=== PATIENT | male | born 1960 | race Caucasian/White ===

== ENCOUNTER 2016-11-21 11:11 | Inpatient (IN) | payer OTHER ==
[~2016-11-21] VITALS: Ht 177.8 cm; Wt 83.0 kg
--- NOTE | 2016-11-21 11:23 | PHYS DOC ---
Adult General Chief Complaint Chief Complaint: SHORTNESS OF BREATH HPI HPI Patient is a 56 year old male who presents with short of breath is been getting worse over the last week. He was started on Augmentin and 800 mg Motrin approximately 10 days ago for dental issues. He states his shortness of breath has been getting worse and over the last couple nights he can't lay flat. He also states his abdomen is becoming more distended. He does smoke a pack of cigarettes per days and the last 40 years and drinks one to 2 glasses of vodka daily. Otherwise he states he has no past medical problems. He denies any chest pain, abdominal pain, leg pain, recent car trips or immobility. Review of Systems Review of Systems Constitutional: Denies fever or chills [] Eyes: Denies change in visual acuity, redness, or eye pain [] HENT: Denies nasal congestion or sore throat [] Respiratory: Denies cough, positive for shortness of breath [] Cardiovascular: No additional information not addressed in HPI [] GI: Denies abdominal pain, nausea, vomiting, bloody stools or diarrhea [] : Denies dysuria or hematuria [] Musculoskeletal: Denies back pain or joint pain [] Integument: Denies rash or skin lesions [] Neurologic: Denies headache, focal weakness or sensory changes [] Endocrine: Denies polyuria or polydipsia [] Current Medications Current Medications Current Medications Medications (Trade) Dose Ordered Sig/Tutu Start Time Stop Time Status Last Admin Dose Admin Aspirin (Nat Aspirin) 325 mg 1X ONCE 11/21/16 14:30 11/21/16 14:31 UNV Furosemide (Lasix) 40 mg 1X ONCE 11/21/16 14:30 11/21/16 14:31 Info (Do NOT chart on this entry -- for MONITORING) 1 each PRN DAILY PRN 11/21/16 13:45 11/23/16 13:44 Iohexol (Omnipaque 300 Mg/ml) 75 ml 1X ONCE 11/21/16 13:30 11/21/16 13:31 DC 11/21/16 13:43 75 ML Morphine Sulfate 2 mg PRN Q2HR PRN 11/21/16 14:30 11/22/16 14:29 UNV Ondansetron HCl (Zofran) 4 mg PRN Q8HRS PRN 11/21/16 14:30 11/22/16 14:29 UNV Allergies Allergies Allergies Coded Allergies Type Severity Reaction Last Updated Verified No Known Drug Allergies 11/21/16 No Physical Exam Physical Exam Constitutional: Well developed, well nourished, no acute distress, non-toxic appearance. [] HENT: Normocephalic, atraumatic, bilateral external ears normal, oropharynx moist, no oral exudates, nose normal. [] Eyes: PERRLA, EOMI, conjunctiva normal, no discharge. [] Neck: Normal range of motion, no tenderness, supple, no stridor. [] Cardiovascular:Heart rate regular rhythm, no murmur [] Lungs & Thorax: Bilateral breath sounds decreased bilaterally, no wheezing or rhonchi noted Abdomen: Bowel sounds normal, soft, mildly distended, no tenderness, no masses, no pulsatile masses. [] Skin: Warm, dry, no erythema, no rash. [] Back: No tenderness, no CVA tenderness. [] Extremities: No tenderness, no cyanosis, no clubbing, ROM intact, no edema. [] Neurologic: Alert and oriented X 3, normal motor function, normal sensory function, no focal deficits noted. [] Psychologic: Affect normal, judgement normal, mood normal. [] Current Patient Data Lab Values Laboratory Tests Test 11/21/16 11:50 White Blood Count 10.5 x10^3/uL (4.0-11.0) Red Blood Count 4.73 x10^6/uL (4.30-5.70) Hemoglobin 14.7 g/dL (13.0-17.5) Hematocrit 43.0 % (39.0-53.0) Mean Corpuscular Volume 91 fL (79-100) Mean Corpuscular Hemoglobin 31 pg (25-35) Mean Corpuscular Hemoglobin Concent 34 g/dL (31-37) Red Cell Distribution Width 13.4 % (11.5-14.5) Platelet Count 257 x10^3/uL (140-400) Neutrophils (%) (Auto) 74 % (31-73) H Lymphocytes (%) (Auto) 16 % (24-48) L Monocytes (%) (Auto) 8 % (0-9) Eosinophils (%) (Auto) 2 % (0-3) Basophils (%) (Auto) 1 % (0-3) Neutrophils # (Auto) 7.8 x10^3uL (1.8-7.7) H Lymphocytes # (Auto) 1.7 x10^3/uL (1.0-4.8) Monocytes # (Auto) 0.8 x10^3/uL (0.0-1.1) Eosinophils # (Auto) 0.2 x10^3/uL (0.0-0.7) Basophils # (Auto) 0.1 x10^3/uL (0.0-0.2) Prothrombin Time 13.1 SEC (11.7-14.0) Prothrombin Time INR 1.1 (0.8-1.1) D-Dimer (Allyn) 0.66 ug/mlFEU (0.00-0.50) H Sodium Level 141 mmol/L (136-145) Potassium Level 3.8 mmol/L (3.5-5.1) Chloride Level 105 mmol/L (98-107) Carbon Dioxide Level 29 mmol/L (21-32) Anion Gap 7 (6-14) Blood Urea Nitrogen 21 mg/dL (8-26) Creatinine 0.8 mg/dL (0.7-1.3) Estimated GFR (Cockcroft-Gault) 99.6 Glucose Level 119 mg/dL (70-99) H Calcium Level 9.2 mg/dL (8.5-10.1) Magnesium Level 2.0 mg/dL (1.8-2.4) Total Bilirubin 0.7 mg/dL (0.2-1.0) Direct Bilirubin 0.1 mg/dL (0.0-0.2) Aspartate Amino Transferase (AST) 27 U/L (15-37) Alanine Aminotransferase (ALT) 36 U/L (16-63) Alkaline Phosphatase 103 U/L (46-116) Creatine Kinase 102 U/L (39-308) Creatine Kinase MB (Mass) 2.7 ng/mL (0.0-3.6) Creatine Kinase MB Relative Index 2.6 % (0-4) Troponin I Quantitative 0.060 ng/mL (0.000-0.055) JJ-Mtf-[id number]-Type Natriuretic Peptide 1024 pg/mL (0-124) H Total Protein 7.1 g/dL (6.4-8.2) Albumin 3.8 g/dL (3.4-5.0) Lipase 110 U/L (73-393) Thyroid Stimulating Hormone (TSH) 3.416 uIU/mL (0.358-3.74) Laboratory Tests 11/21/16 11:50 Laboratory Tests 11/21/16 11:50 EKG EKG EKG shows sinus tachycardia 3-[address] elevations or T-wave inversions, normal axis, QTC 501 ms, as interpreted by me. Radiology/Procedures Radiology/[place] [address] IMAGING REPORT Signed PATIENT: YE ESCALERA ACCOUNT: [id number] : 1960 LOCATION: ER AGE: 56 SEX: M EXAM STATUS: REG ER ORD. PHYSICIAN: ANTHONY DOMINGUEZ MD REASON: SHORTNESS OF BREATH 18 PROCEDURE: PORTABLE CHEST 1V Indication: Shortness of air. Time of exam 11:51 AM The heart is mildly enlarged. The lungs are clear. No infiltrates are detected. No effusion or pneumothorax is seen. Impression: Mild cardiomegaly. No acute feature is detected. DICTATED and SIGNED BY: SERGEI BROWN MD DATE: 11/21/16 121 CC: ANTHONY DOMINGUEZ MD; NO PCP ~ [place] [address] IMAGING REPORT Signed PATIENT: YE ESCALERA ACCOUNT: [id number] : 1960 LOCATION: ER AGE: 56 SEX: M EXAM STATUS: REG ER ORD. PHYSICIAN: ANTHONY DOMINGUEZ MD REASON: soa PROCEDURE: CT ANGIOGRAPHY CHEST CTA of the chest with and without contrast Clinical indications: Shortness of air. Technique: Noncontrast axial localizer was performed. After IV infusion of 75 cc of Omnipaque 300, helical CT scanning of the chest was performed using the CT pulmonary embolism protocol. A coronal MIP reconstruction was generated. PQRS Compliance Statement: One or more of the following individualized dose reduction techniques were utilized for this examination: 1. Automated exposure control 2. Adjustment of the mA and/or kV according to patient size 3. Use of iterative reconstruction technique Comparison: None available. Findings: No pulmonary embolism is evident. No thoracic aortic dissection or focal dilatation is seen. The heart size is at the upper limits of normal. No pericardial effusion is seen. There is mild calcified atheromatous disease of the coronary arteries. No enlarged thoracic lymphadenopathy is seen. Small bilateral pleural effusions are seen right greater than left. Associated compressive atelectasis of both lower lobes is seen. No pneumothorax is evident. The proximal bronchial tree is patent. Breathing motion artifact is present. Evaluation for rib fracture is difficult therefore. No osteolytic process is seen. No compression deformity is evident. IMPRESSION: No pulmonary embolism. Small bilateral pleural effusions right greater than left. Associated basilar atelectasis of both lower lobes. Heart size is at the upper limits of normal. Mild calcified atheromatous disease of the coronary arteries. DICTATED and SIGNED BY: DELIA FRANKS MD DATE: 11/21/16 1401 CC: ANTHONY DOMINGUEZ MD; NO PCP ~ Impressions: Congestive heart failure exacerbation Alcohol abuse Course & Med Decision Making Course & Med Decision Making Pertinent Labs and Imaging studies reviewed. (See chart for details) G shows sinus tachycardia. He does have slightly elevated troponin. D-dimer is elevated with a negative CT scan. BNP is elevated. Spoke with cardiology who wanted to start Lasix. Patient is being admitted to hospitalist with interim orders written. Dragon Disclaimer Dragon Disclaimer This electronic medical record was generated, in whole or in part, using a voice recognition dictation system. ANTHONY DOMINGUEZ MD Nov 21, 2016 11:23
[2016-11-21 12:00] LABS: BASO # 0.1 x10^3/uL (0.0-0.2); BASO % 1 % (0-3); EOS % 2 % (0-3); HEMOGLOBIN 14.7 g/dL (13.0-17.5); LYMPH # 1.7 x10^3/uL (1.0-4.8); LYMPH % 16 % (24-48); MEAN CORPUSCULAR HEMOGLOBIN 31 pg (25-35); MEAN CORPUSCULAR HGB CONC 34 g/dL (31-37); MEAN CORPUSCULAR VOLUME 91 fL (79-100); MONO % 8 % (0-9); NEUT % 74 % (31-73); PLATELET COUNT 257 x10^3/uL (140-400); RED BLOOD COUNT 4.73 x10^6/uL (4.30-5.70); RED CELL DISTRIBUTION WIDTH 13.4 % (11.5-14.5); WHITE BLOOD COUNT 10.5 x10^3/uL (4.0-11.0)
[2016-11-21 12:12] LABS: INR 1.1 (0.8-1.1); PROTHROMBIN TIME PATIENT 13.1 SEC (11.7-14.0)
[2016-11-21 12:14] LABS: CALCIUM 9.2 mg/dL (8.5-10.1); CREATININE 0.8 mg/dL (0.7-1.3); GFR 99.6; POTASSIUM 3.8 mmol/L (3.5-5.1)
--- NOTE | 2016-11-21 12:15 | EKG ---
[facility] [address] [place] [address] Test Date: 2016-11-21 Test Time: 11:35:37 Pat Name: YE ESCALERA Department: Room: Gender: M Fryline Attendant: : 1960 Requested By: ANTHONY DOMINGUEZ Order Number: [id number] Reading MD: Mary Nova Measurements Intervals [place] Rate: 111 P: 34 OR: 130 QRS: 46 QRSD: 98 T: 57 QT: 366 QTc: 501 Interpretive Statements SINUS TACHYCARDIA LEFT ATRIAL ABNORMALITY ABNORMAL ECG Electronically Signed On 11-23-2016 14:06:07 CDT by Mary Nova
--- NOTE | 2016-11-21 12:15 | RAD ---
Indication: Shortness of air. Time of exam 11:51 AM The heart is mildly enlarged. The lungs are clear. No infiltrates are detected. No effusion or pneumothorax is seen. Impression: Mild cardiomegaly. No acute feature is detected.
[2016-11-21 12:38] LABS: ALBUMIN 3.8 g/dL (3.4-5.0); DIRECT BILIRUBIN 0.1 mg/dL (0.0-0.2); TOTAL BILIRUBIN 0.7 mg/dL (0.2-1.0); TOTAL PROTEIN 7.1 g/dL (6.4-8.2)
[2016-11-21 13:01] LABS: CKMB MASS 2.7 ng/mL (0.0-3.6)
[2016-11-21] MEDS ORDERED: IOHEXOL 300 MG/ML 75 ML VIAL IV ONE (13:30)
[2016-11-21] MEDS ORDERED: CONTRAST GIVEN MC PRN (13:45)
--- NOTE | 2016-11-21 14:14 | RAD ---
CTA of the chest with and without contrast Clinical indications: Shortness of air. Technique: Noncontrast axial localizer was performed. After IV infusion of 75 cc of Omnipaque 300, helical CT scanning of the chest was performed using the CT pulmonary embolism protocol. A coronal MIP reconstruction was generated. PQRS Compliance Statement: One or more of the following individualized dose reduction techniques were utilized for this examination: 1. Automated exposure control 2. Adjustment of the mA and/or kV according to patient size 3. Use of iterative reconstruction technique Comparison: None available. Findings: No pulmonary embolism is evident. No thoracic aortic dissection or focal dilatation is seen. The heart size is at the upper limits of normal. No pericardial effusion is seen. There is mild calcified atheromatous disease of the coronary arteries. No enlarged thoracic lymphadenopathy is seen. Small bilateral pleural effusions are seen right greater than left. Associated compressive atelectasis of both lower lobes is seen. No pneumothorax is evident. The proximal bronchial tree is patent. Breathing motion artifact is present. Evaluation for rib fracture is difficult therefore. No osteolytic process is seen. No compression deformity is evident. IMPRESSION: No pulmonary embolism. Small bilateral pleural effusions right greater than left. Associated basilar atelectasis of both lower lobes. Heart size is at the upper limits of normal. Mild calcified atheromatous disease of the coronary arteries.
--- NOTE | 2016-11-21 14:17 | PDOC2 ---
CARDIAC CONSULT DATE OF CONSULT Date of Consult DATE: 11/21/16 TIME: 14:16 REASON FOR CONSULT Reason for Consult: CHF exacerbation REFERRING PHYSICIAN Referring Physician: Devendra SOURCE Source: Chart review, Patient HISTORY OF PRESENT ILLNESS HISTORY OF PRESENT ILLNESS This is a pleasant 56 yo male admitted for complains of SOA. Reports that in the last week he has been having SOA. Initially with GERMAN but it progressed to rest then orthopnea and PND. He has been having wheezy episodes as well. Complains of chest tightness at night when he feels SOA but denies any nausea or vomiting. Also with nonproductive cough. Reports no radiating jaw or arm pain, no back pain. Denies any palpitations. He has periodontal disease with some of his top teeth needing to be taken out but currently being treated with po amoxicillin and high dose ibuprofen before his tooth extraction scheduled for 12/2016. He also continue to smoke tobacco and known for COPD but only takes albuterol inhaler which he has been using quite frequently in the last few days. He also chewed on some meth rolled in a toilet paper about 4 days ago. Reports 1/2 pint of bourbon/vodka mix daily. In addition to his current symptoms he also has been feeling some tightness around his abdomen. No significant swelling to LE. No prior hx of CAD, VTE, falls or any injury. PAST MEDICAL HISTORY Cardiovascular: HTN, Hyperlipidemia Pulmonary: COPD CENTRAL NERVOUS SYSTEM: Seizure (last episode grand mal 4 yrs ago, treated with meds at that time occurred in prision but no maintenance currently) GI: No pertinent hx Heme/Onc: No pertinent hx Hepatobiliary: Hep A/B/C (C) Psych: No pertinent hx Musculoskeletal: Osteoarthritis Rheumatologic: No pertinent hx Infectious disease: No pertinent hx ENT: Other (periodontal disease/gingivitis) Renal/: No pertinent hx Endocrine: No pertinent hx Dermatology: No pertinent hx PAST SURGICAL HISTORY Past Surgical History: Arthroscopy (left knee), Tonsillectomy, Other (skin graft from botello to RLE) FAMILY HISTORY Family History: Other (thyroid disease) SOCIAL HISTORY Smoke: <1 pack per day (>40 yrs) ALCOHOL: heavy Drugs: Marijuana, Crystal meth Lives: with Family CURRENT MEDICATIONS CURRENT MEDICATIONS Current Medications Medications (Trade) Dose Ordered Sig/Tutu Route PRN Reason Start Time Stop Time Status Last Admin Dose Admin Iohexol (Omnipaque 300 Mg/ml) 75 ml 1X ONCE IV 11/21/16 13:30 11/21/16 13:31 DC 11/21/16 13:43 ALLERGIES ALLERGIES: Coded Allergies: No Known Drug Allergies (Unverified , 11/21/16) ROS Review of System 14 point ROS evaluated with pertinent positives noted per HPI PHYSICAL EXAM General: Alert, Oriented X3, Cooperative, No acute distress HEENT: Atraumatic, Mucous membr. moist/pink Lungs: Other (basialr crackles) Heart: Regular rate (SR/ST), Normal S1, Normal S2, Other (S3; 2/6 systolic murmur to LLS border) Abdomen: Soft, No tenderness, Other (RUQ tenderness; hepatomegaly; possible ascites) Extremities: No cyanosis, No edema Skin: No breakdown, No significant lesion Neuro: Normal speech, Sensation intact Psych/Mental Status: Mental status NL, Mood NL MUSCULOSKELETAL: Osteoarthritic changes both hands LABS Lab: Laboratory Tests Test 11/21/16 11:50 White Blood Count 10.5 x10^3/uL (4.0-11.0) Red Blood Count 4.73 x10^6/uL (4.30-5.70) Hemoglobin 14.7 g/dL (13.0-17.5) Hematocrit 43.0 % (39.0-53.0) Mean Corpuscular Volume 91 fL (79-100) Mean Corpuscular Hemoglobin 31 pg (25-35) Mean Corpuscular Hemoglobin Concent 34 g/dL (31-37) Red Cell Distribution Width 13.4 % (11.5-14.5) Platelet Count 257 x10^3/uL (140-400) Neutrophils (%) (Auto) 74 % (31-73) Lymphocytes (%) (Auto) 16 % (24-48) Monocytes (%) (Auto) 8 % (0-9) Eosinophils (%) (Auto) 2 % (0-3) Basophils (%) (Auto) 1 % (0-3) Neutrophils # (Auto) 7.8 x10^3uL (1.8-7.7) Lymphocytes # (Auto) 1.7 x10^3/uL (1.0-4.8) Monocytes # (Auto) 0.8 x10^3/uL (0.0-1.1) Eosinophils # (Auto) 0.2 x10^3/uL (0.0-0.7) Basophils # (Auto) 0.1 x10^3/uL (0.0-0.2) Prothrombin Time 13.1 SEC (11.7-14.0) Prothromb Time International Ratio 1.1 (0.8-1.1) D-Dimer (Allyn) 0.66 ug/mlFEU (0.00-0.50) Sodium Level 141 mmol/L (136-145) Potassium Level 3.8 mmol/L (3.5-5.1) Chloride Level 105 mmol/L (98-107) Carbon Dioxide Level 29 mmol/L (21-32) Anion Gap 7 (6-14) Blood Urea Nitrogen 21 mg/dL (8-26) Creatinine 0.8 mg/dL (0.7-1.3) Estimated GFR (Cockcroft-Gault) 99.6 Glucose Level 119 mg/dL (70-99) Calcium Level 9.2 mg/dL (8.5-10.1) Magnesium Level 2.0 mg/dL (1.8-2.4) Total Bilirubin 0.7 mg/dL (0.2-1.0) Direct Bilirubin 0.1 mg/dL (0.0-0.2) Aspartate Amino Transf (AST/SGOT) 27 U/L (15-37) Alanine Aminotransferase (ALT/SGPT) 36 U/L (16-63) Alkaline Phosphatase 103 U/L (46-116) Creatine Kinase 102 U/L (39-308) Creatine Kinase MB (Mass) 2.7 ng/mL (0.0-3.6) Creatine Kinase MB Relative Index 2.6 % (0-4) Troponin I Quantitative 0.060 ng/mL (0.000-0.055) ZX-[id number]-Q-Type Natriuretic Peptide 1024 pg/mL (0-124) Total Protein 7.1 g/dL (6.4-8.2) Albumin 3.8 g/dL (3.4-5.0) Lipase 110 U/L (73-393) Thyroid Stimulating Hormone (TSH) 3.416 uIU/mL (0.358-3.74) ASSESSMENT/PLAN ASSESSMENT/PLAN 1. Acute diastolic CHF: likely induced by meth use and COPD exacerbation. 2. Acute COPD exacerbation with continue tobaccoism: defer to PCP 3. Alcoholism with hx of hep C: per PCP 4. Hx of seizures: last episode 4 yrs ago 5. Periodontal disease: still on amoxicillin 6. Substance abuse: hx of IV drug use. Chewed meth 4 days ago. 7. HTN: unmedicated. currently labile 8. High dose NSAID use: last 10 days due to teeth 9. Elevated troponin: CP free. Doubt ACS. Suspect from #1,2, and #6. Initial 0.06. EKG SR with LVH but no acute changes Recommendations 1. Discussed med compliance, smoking cessation, ETOH reduction and abstinence from Rec drugs. 2. TTE. TSH, lipid panel. Trend troponin, tox screen 3. Lasix therapy. Decrease NSAID use 4. Will defer coreg for now with meth use. Will start on NTG paste and lisinopril. Hydralazine IV PRN Problems: JOSE ALFREDO WESLEY DINKEY ENGINE [employer]ER Nov 21, 2016 14:17
[2016-11-21] MEDS ORDERED: FUROSEMIDE 40 MG/4 ML VIAL. IVP ONE (14:30)
[2016-11-21] MEDS ORDERED: ASPIRIN 325 MG TABLET PO ONE (14:45)
[2016-11-21] MEDS ORDERED: ONDANSETRON PF 4 MG/2 ML VIAL. IV PRN (14:45)
[2016-11-21 14:59] LABS: CHOLESTEROL/HDL RATIO 5.5
[2016-11-21] MEDS ORDERED: hydrALAZINE 20 MG/ML VIAL. IVP ONE (15:30)
--- NOTE | 2016-11-21 15:44 | ACF ---
Admission Forms Criteria HEART FAILURE: COMMON COMPLICATIONS Clinical Indications for Inpatient Care (Place 'X' for any and all applicable criteria): Ongoing inpatient care may be indicated for heart failure with 1 or more of the following (1)(2)(3)(4)(5)(6)(7)(8): [ ]I. New-onset heart failure [ ]II. Acute cardiac ischemia causing or associated with failure [ ]III. Ongoing need for care for primary condition requiring frequent therapy adjustments because of changes in cardiac function (eg, drug dosage changes for drugs that are renally metabolized) [X ]IV. Complications of heart failure, including 1 or more of the following: [ ]a) Hemodynamic instability [ ]b) Pericardial effusion [ ]c) Symptomatic pleural effusion [ ]d) Hypoxemia [ ]e) Tachypnea [X ]f) Dyspnea [ ]g) Syncope [ ]h) Altered mental status [ ]i) Acute renal insufficiency that is severe (reduction of more than 50% in estimated glomerular filtration rate from baseline) or progressive reduction of more than 25% in estimated glomerular filtration rate from baseline, with creatinine continuing to rise) [ ]j) Debilitating anasarca (eg tissue breakdown with infection, inability to void due to edema) (E) [ ]k) Clinically significant metabolic abnormalities due to heart failure (eg, new-onset metabolic acidosis) Extended stay may be needed until ALL of the following are present (1)(3)(18)(41 )(55) [ ]a) Hemodynamic stability [ ]b) Stable and effective diuretic regimen established (or patient on stable dialysis regimen if in chronic renal failure) [ ]c) Volume status acceptable on oral medication [ ]d) Breathing comfortably at rest [ ]e) Saturation of arterial oxygen greater than 90% or at acceptable baseline [ ]f) Pulmonary edema absent or improved [ ]g) Peripheral or sacral edema absent or improved [ ]h) Renal function stable and manageable at a lower level of care [ ]i) Complications (eg, pleural effusion) resolved or manageable at a lower level of care [ ]g) Patient or caregiver has received written discharge instructions or educational material addressing activity level, diet, discharge medications, follow-up appointment, weight monitoring, and what to do if symptoms worsen.(25)(26) The original [facility] [employer] content created by [facility] [employer] has been revised. The portions of the content which have been revised are identified through the use of italic text, and [facility] has neither reviewed nor approved the modified material.All other unmodified content is copyright [facility]. Please see references footnoted in the original [facility] edition 2015 Admission Criteria Met?: Yes ANNE JOHNSTON Nov 21, 2016 15:44
[2016-11-21 17:11] VITALS: BP 150/101
[2016-11-21] MEDS: NITROGLYCERIN OINT 1 GM PACKET. TP SCH (18:40)
[2016-11-21 19:13] VITALS: BP 136/78
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
[2016-11-21] MEDS: ATORVASTATIN CALCIUM 20 MG TABLET PO SCH (21:00)
[2016-11-21] MEDS: ENOXAPARIN 40 MG/0.4 ML SYRINGE. SQ SCH (21:00)
[2016-11-21] MEDS ORDERED: AMOXICILLIN 250 MG CAPSULE. PO SCH (22:15)
[2016-11-21] MEDS ORDERED: ZOLPIDEM 5 MG TABLET. PO PRN (22:15)
[2016-11-21] MEDS ORDERED: THIAMINE 100 MG in IV NORMAL SALINE 50ML 50 ML IV ONE (22:30)
[2016-11-21 23:19] VITALS: BP 138/90
[2016-11-22] MEDS: MORPHINE SULFATE 2 MG/ML DISP.SYRIN. IV PRN ×2 (01:23→10:58)
[2016-11-22 03:19] LABS: BASO % 0 % (0-3); EOS % 3 % (0-3); HEMATOCRIT 44.3 % (39.0-53.0); HEMOGLOBIN 14.9 g/dL (13.0-17.5); LYMPH # 1.8 x10^3/uL (1.0-4.8); LYMPH % 20 % (24-48); MEAN CORPUSCULAR HEMOGLOBIN 31 pg (25-35); MEAN CORPUSCULAR HGB CONC 34 g/dL (31-37); MEAN CORPUSCULAR VOLUME 93 fL (79-100); MONO % 10 % (0-9); NEUT % 68 % (31-73); PLATELET COUNT 240 x10^3/uL (140-400); RED BLOOD COUNT 4.78 x10^6/uL (4.30-5.70); RED CELL DISTRIBUTION WIDTH 13.6 % (11.5-14.5)
[2016-11-22 03:26] LABS: CALCIUM 8.9 mg/dL (8.5-10.1); CREATININE 0.8 mg/dL (0.7-1.3); GFR 99.6; POTASSIUM 3.6 mmol/L (3.5-5.1)
[2016-11-22 03:33] VITALS: BP 137/94
[2016-11-22] MEDS: NITROGLYCERIN OINT 1 GM PACKET. TP SCH ×2 (06:00)
[2016-11-22 07:00] VITALS: BP 121/85
--- NOTE | 2016-11-22 08:46 | RAD ---
Complete abdomen ultrasound study History: Ascites. Shortness of air. Findings: The tail of the pancreas is partially obscured due to overlying bowel gas. Otherwise no focal enlargement of the pancreas is seen. The liver measures 18.9 cm in length which is mildly enlarged. No focal hepatic mass is seen. The gallbladder is normal and no gallstones are seen. The extra hepatic bile duct measures 3.2 mm in caliber which is normal. The intrahepatic portion of the IVC is unremarkable. No focal aneurysmal dilatation of the proximal or mid abdominal aorta is seen. The distal abdominal aorta is obscured by bowel gas. The length of the right kidney is 11.2 cm and the length of the left kidney is 10.7 cm. No hydronephrosis or renal mass or perinephric fluid collection is seen on either side. There is a cyst of the upper pole of the right kidney which measures 8 mm. No ascites is seen. The spleen measures 13.4 cm in length which is mildly enlarged. The spleen is homogeneous. IMPRESSION: Mild hepatosplenomegaly. No ascites is evident. Small right-sided pleural effusion is seen.
[2016-11-22] MEDS: AMOXICILLIN 500 MG PO SCH ×3 (09:00→21:11)
[2016-11-22] MEDS ORDERED: FUROSEMIDE 40 MG/4 ML VIAL. IVP SCH (09:00)
[2016-11-22] MEDS: LISINOPRIL 20 MG TABLET PO SCH (09:02)
[2016-11-22] MEDS: THIAMINE 100 MG TABLET. PO SCH (09:02)
[2016-11-22] MEDS: FOLIC/VIT B COMP W-C (RENAL) TABLET. PO SCH (09:02)
--- NOTE | 2016-11-22 09:58 | PDOC ---
CARDIO Progress Notes Date and Time Date of Service 11/22/2016 Time of Evaluation 0930 Subjective Subjective: No Chest Pain, No shortness of breath, No Palpitations, No Dizziness, Other (Still has some tightness around belly) Vitals Vitals Vital Signs Date Time Temp Pulse Resp B/P (MAP) Pulse Ox O2 Delivery O2 Flow Rate FiO2 11/22/16 09:02 96 121/85 11/22/16 07:00 97.8 17 96 Room Air 97.8 Weight Weight [ ] Input and Output Intake and Output Intake and Output 11/22/16 07:00 Intake Total 1390 ml Output Total 1475 ml Balance -85 ml Intake Oral 1390 ml Output Urine Total 1475 ml Laboratory Labs Laboratory Tests Test 11/21/16 11:50 11/21/16 20:34 11/22/16 03:05 White Blood Count 10.5 x10^3/uL (4.0-11.0) 9.0 x10^3/uL (4.0-11.0) Red Blood Count 4.73 x10^6/uL (4.30-5.70) 4.78 x10^6/uL (4.30-5.70) Hemoglobin 14.7 g/dL (13.0-17.5) 14.9 g/dL (13.0-17.5) Hematocrit 43.0 % (39.0-53.0) 44.3 % (39.0-53.0) Mean Corpuscular Volume 91 fL (79-100) 93 fL (79-100) Mean Corpuscular Hemoglobin 31 pg (25-35) 31 pg (25-35) Mean Corpuscular Hemoglobin Concent 34 g/dL (31-37) 34 g/dL (31-37) Red Cell Distribution Width 13.4 % (11.5-14.5) 13.6 % (11.5-14.5) Platelet Count 257 x10^3/uL (140-400) 240 x10^3/uL (140-400) Neutrophils (%) (Auto) 74 % (31-73) 68 % (31-73) Lymphocytes (%) (Auto) 16 % (24-48) 20 % (24-48) Monocytes (%) (Auto) 8 % (0-9) 10 % (0-9) Eosinophils (%) (Auto) 2 % (0-3) 3 % (0-3) Basophils (%) (Auto) 1 % (0-3) 0 % (0-3) Neutrophils # (Auto) 7.8 x10^3uL (1.8-7.7) 6.1 x10^3uL (1.8-7.7) Lymphocytes # (Auto) 1.7 x10^3/uL (1.0-4.8) 1.8 x10^3/uL (1.0-4.8) Monocytes # (Auto) 0.8 x10^3/uL (0.0-1.1) 0.9 x10^3/uL (0.0-1.1) Eosinophils # (Auto) 0.2 x10^3/uL (0.0-0.7) 0.2 x10^3/uL (0.0-0.7) Basophils # (Auto) 0.1 x10^3/uL (0.0-0.2) 0.0 x10^3/uL (0.0-0.2) Prothrombin Time 13.1 SEC (11.7-14.0) Prothromb Time International Ratio 1.1 (0.8-1.1) D-Dimer (Allyn) 0.66 ug/mlFEU (0.00-0.50) Sodium Level 141 mmol/L (136-145) 139 mmol/L (136-145) Potassium Level 3.8 mmol/L (3.5-5.1) 3.6 mmol/L (3.5-5.1) Chloride Level 105 mmol/L (98-107) 101 mmol/L (98-107) Carbon Dioxide Level 29 mmol/L (21-32) 28 mmol/L (21-32) Anion Gap 7 (6-14) 10 (6-14) Blood Urea Nitrogen 21 mg/dL (8-26) 20 mg/dL (8-26) Creatinine 0.8 mg/dL (0.7-1.3) 0.8 mg/dL (0.7-1.3) Estimated GFR (Cockcroft-Gault) 99.6 99.6 Glucose Level 119 mg/dL (70-99) 117 mg/dL (70-99) Calcium Level 9.2 mg/dL (8.5-10.1) 8.9 mg/dL (8.5-10.1) Magnesium Level 2.0 mg/dL (1.8-2.4) Total Bilirubin 0.7 mg/dL (0.2-1.0) Direct Bilirubin 0.1 mg/dL (0.0-0.2) Aspartate Amino Transf (AST/SGOT) 27 U/L (15-37) Alanine Aminotransferase (ALT/SGPT) 36 U/L (16-63) Alkaline Phosphatase 103 U/L (46-116) Creatine Kinase 102 U/L (39-308) Creatine Kinase MB (Mass) 2.7 ng/mL (0.0-3.6) Creatine Kinase MB Relative Index 2.6 % (0-4) Troponin I Quantitative 0.060 ng/mL (0.000-0.055) 0.052 ng/mL (0.000-0.055) 0.046 ng/mL (0.000-0.055) XT-Zve-V-Type Natriuretic Peptide 1024 pg/mL (0-124) Total Protein 7.1 g/dL (6.4-8.2) Albumin 3.8 g/dL (3.4-5.0) Triglycerides Level 247 mg/dL (0-150) Cholesterol Level 218 mg/dL (0-200) LDL Cholesterol, Calculated 129 mg/dL (0-100) VLDL Cholesterol, Calculated 49 mg/dL (0-40) Non-HDL Cholesterol Calculated 178 mg/dL (0-129) HDL Cholesterol 40 mg/dL (40-60) Cholesterol/HDL Ratio 5.5 Lipase 110 U/L (73-393) Thyroid Stimulating Hormone (TSH) 3.416 uIU/mL (0.358-3.74) Physical Exam HEENT: Neck Supple W Full Motion Chest: Symmetric LUNGS: Other (faint crackles to bases) Heart: S1S2, RRR (SR and no significant ectopies overnight), murmurs (2/6 systolic murmur to LLS border) Abdomen: Other (RUQ tenderness, hepatomegaly, possible ascites) Extremities: No Edema, No Calf Tenderness Neurology: alert, oriented, follow commands Assessment Assessment 1. Acute diastolic/systolic CHF: likely induced by meth use and COPD exacerbation. appears compensated 2. RUQ tenderness with hepatomegaly, possible ascites: Contributing CHF with notable alcoholism with hx of hep C: per PCP 3. HTN: controlled 4. Cardiomyopathy: NEW. No CP. preliminary EF 25-30% with severe global hypokinesis. 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 HLP 6. Periodontal disease/substance abuse: methamphetamines Recommendations 1. Repeated discussion regarding med compliance, smoking cessation, ETOH reduction and abstinence from Rec drugs. 2. Tox screen pending 3. Lasix therapy. Chagne to PO tomorrow. Decrease NSAID use 4. Discussed stopping meth/ETOH use, to start on BB. Will start on coreg. Stop NTG 5. Continue with lisinopril and statin 6. MPI today JOSE ALFREDO WESLEY APRN Nov 22, 2016 09:58
[2016-11-22 10:25] LABS: BILIRUBIN,URINE NEGATIVE (NEG); GLUCOSE,URINE NEGATIVE (NEG); NITRITE,URINE NEGATIVE (NEG); PH,URINE 6.5; PROTEIN,URINE NEGATIVE (NEG-TRACE)
[2016-11-22 10:31] LABS: BARBITURATES NEG (NEG); BENZODIAZEPINES NEG (NEG); CANNABINOIDS NEG (NEG); COCAINE NEG (NEG); METHADONE NEG (NEG); OPIATES POS (NEG); PHENCYCLIDINE NEG (NEG)
[2016-11-22] MEDS ORDERED: REGADENOSON 0.4 MG/5 ML DISP.SYRIN. IV ONE (10:45)
[2016-11-22 10:51] LABS: BACTERIA,URINE FEW /HPF (0-FEW)
[2016-11-22 11:00] VITALS: BP 133/89
--- NOTE | 2016-11-22 13:08 | CARD ---
APPROVED REPORT EXAM: Two-dimensional and M-mode echocardiogram with Doppler and color Doppler. Other Information Quality : GoodHR: 112bpm Rhythm : Tachycardia INDICATION Dyspnea 2D DIMENSIONS RVDd2.6 (2.9-3.5cm)Left Atrium(2D)4.1 (1.6-4.0cm) IVSd0.7 (0.7-1.1cm)Aortic Root(2D)3.4 (2.0-3.7cm) LVDd6.1 (3.9-5.9cm)LVOT Diameter2.3 (1.8-2.4cm) PWd0.8 (0.7-1.1cm)LVDs5.0 (2.5-4.0cm) FS (%) 18.1 %SV70.2 ml LVEF(%)36.8 (>50%) Aortic Valve AoV Peak Can.97.4cm/sAoV VTI16.2cm AO Peak GR.3.8mmHgLVOT Peak Can.64.8cm/s AO Mean GR.3mmHgAVA (VMAX)2.70cm2 Mitral Valve MV E Kxpqigpw06.3cm/sMV E Peak Gr.7mmHg MV DECEL [id number] A Bjwqxpoj093.8cm/s MV E Mean Gr.4mmHgE/A Ratio0.7 MV A [id number] Pulmonary Valve PV Peak Wucbsyxp18.6cm/s Tricuspid Valve TR P. [id number]/sTR Peak Gr.28mmHg LEFT VENTRICLE The Left Ventricle is mildly dilated. There is normal left ventricular wall thickness. Left ventricle systolic function is severely impaired. The Ejection Fraction is 25-30%. There is severe global hypo kinesis of the left ventricle. Transmitral Doppler flow pattern is Grade I-abnormal relaxation patter n. No left ventricle thrombus noted on this study. RIGHT VENTRICLE The right ventricle is normal size. There is normal right ventricular wall thickness. Systolic functi on is moderately reduced. ATRIA The left atrium is mildly dilated. The right atrium is mildly dilated. The interatrial septum is inta ct with no evidence for an atrial septal defect or patent foramen ovale as noted on 2-D or Doppler im aging. AORTIC VALVE The aortic valve is normal in structure and function. The aortic valve is trileaflet. Doppler and Col or Flow revealed no significant aortic regurgitation. There is no significant aortic valvular stenosi s. MITRAL VALVE There is no evidence of mitral valve prolapse. There is no mitral valve stenosis. Doppler and Color F low revealed mild to moderate mitral regurgitation. TRICUSPID VALVE Doppler and Color Flow revealed mild tricuspid regurgitation. The pulmonary artery systolic pressure is estimated at 32 mmHg. There is mild pulmonary hypertension. PULMONIC VALVE Doppler and Color Flow revealed trace pulmonic valvular regurgitation. There is no pulmonic valvular stenosis. GREAT VESSELS The aortic root is normal in size. The ascending aorta is normal in size. The IVC is normal in size a nd collapses >50% with inspiration. PERICARDIAL EFFUSION There is small right pleural effusion. There is no evidence of significant pericardial effusion. Critical Notification Critical Value: No <Conclusion> Left ventricle systolic function is severely impaired. The Ejection Fraction is 25-30%. There is severe global hypokinesis of the left ventricle. RV Systolic function is moderately reduced. Doppler and Color Flow revealed mild to moderate mitral regurgitation. Doppler and Color Flow revealed mild tricuspid regurgitation. The pulmonary artery systolic pressure is estimated at 32 mmHg. There is mild pulmonary hypertension.
[2016-11-22] MEDS: ASPIRIN ENTERIC COATED 81 MG TABLET.DR. PO SCH (13:54)
[2016-11-22 15:00] VITALS: BP 101/62
--- NOTE | 2016-11-22 17:35 | PDOC ---
PROGRESS NOTES Chief Complaint Chief Complaint Acute hypoxic respir failure ASSESSMENT AND PLAN: 1. CHF: acute systolic (EF 25-30%) and diastolic per echo today. clinically improved. continue IV lasix for now, switch to PO in AM. appreciate Cardiology input 2. COPD: possibly contributing to respir issues. nebs PRN 3. EtOH abuse: admits to daily use, UDS neg. on CIWA protocol; MultiVites/ thiamine 4. 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 no ascites noted. 5. Tobaccoism: encouraged cessation 6. Multidrug abuse: distant hx of IVDA; admits to meth in past couple of days. 7. Dental caries: no acute abscess noted 8. Prophylaxis: PPI, lovenox History of Present Illness History of Present Illness breathing improved. no CP or palpitations. no abd pain or nausea Vitals Vitals Vital Signs Date Time Temp Pulse Resp B/P (MAP) Pulse Ox O2 Delivery O2 Flow Rate FiO2 11/22/16 15:00 97.7 89 17 101/62 (75) 95 Room Air 97.7 Physical Exam General: Alert, Oriented X3, Cooperative, No acute distress Heart: Regular rate, Other (S3; 2/6 systolic murmur ) Lungs: Clear Abdomen: Other (distended, soft) Extremities: No edema Skin: No breakdown, No significant lesion Labs LABS Laboratory Tests Test 11/21/16 20:34 11/22/16 03:05 11/22/16 10:00 Troponin I Quantitative 0.052 ng/mL (0.000-0.055) 0.046 ng/mL (0.000-0.055) White Blood Count 9.0 x10^3/uL (4.0-11.0) Red Blood Count 4.78 x10^6/uL (4.30-5.70) Hemoglobin 14.9 g/dL (13.0-17.5) Hematocrit 44.3 % (39.0-53.0) Mean Corpuscular Volume 93 fL (79-100) Mean Corpuscular Hemoglobin 31 pg (25-35) Mean Corpuscular Hemoglobin Concent 34 g/dL (31-37) Red Cell Distribution Width 13.6 % (11.5-14.5) Platelet Count 240 x10^3/uL (140-400) Neutrophils (%) (Auto) 68 % (31-73) Lymphocytes (%) (Auto) 20 % (24-48) Monocytes (%) (Auto) 10 % (0-9) Eosinophils (%) (Auto) 3 % (0-3) Basophils (%) (Auto) 0 % (0-3) Neutrophils # (Auto) 6.1 x10^3uL (1.8-7.7) Lymphocytes # (Auto) 1.8 x10^3/uL (1.0-4.8) Monocytes # (Auto) 0.9 x10^3/uL (0.0-1.1) Eosinophils # (Auto) 0.2 x10^3/uL (0.0-0.7) Basophils # (Auto) 0.0 x10^3/uL (0.0-0.2) Sodium Level 139 mmol/L (136-145) Potassium Level 3.6 mmol/L (3.5-5.1) Chloride Level 101 mmol/L (98-107) Carbon Dioxide Level 28 mmol/L (21-32) Anion Gap 10 (6-14) Blood Urea Nitrogen 20 mg/dL (8-26) Creatinine 0.8 mg/dL (0.7-1.3) Estimated GFR (Cockcroft-Gault) 99.6 Glucose Level 117 mg/dL (70-99) Calcium Level 8.9 mg/dL (8.5-10.1) Urine Collection Type Unknown Urine Color Yellow Urine Clarity Clear Urine pH 6.5 Urine Specific [place] 1.015 Urine Protein Negative mg/dL (NEG-TRACE) Urine Glucose (UA) Negative mg/dL (NEG) Urine Ketones (Stick) Negative mg/dL (NEG) Urine Blood Negative (NEG) Urine Nitrite Negative (NEG) Urine Bilirubin Negative (NEG) Urine Urobilinogen Dipstick 1.0 mg/dL (0.2 mg/dL) Urine Leukocyte Esterase Negative (NEG) Urine RBC 1-2 /HPF (0-2) Urine WBC 1-4 /HPF (0-4) Urine Bacteria Few /HPF (0-FEW) Urine Mucus Mod /LPF Urine Opiates Screen Pos (NEG) Urine Methadone Screen Neg (NEG) Urine Barbiturates Neg (NEG) Urine Phencyclidine Screen Neg (NEG) Urine Amphetamine/Methamphetamine Pos (NEG) Urine Benzodiazepines Screen Neg (NEG) Urine Cocaine Screen Neg (NEG) Urine Cannabinoids Screen Neg (NEG) Urine Ethyl Alcohol Neg (NEG) PIETER SOLIS MD Nov 22, 2016 17:35
--- NOTE | 2016-11-22 17:38 | RAD ---
APPROVED REPORT Test Type: Pharmacological Stress Nurse/Tech: Desiree Vazquez R.N. Test Indications: dyspnea, dizziness Cardiac History: htn, smoker, asthma as child Medications: See Electronic Medical Record Medical History: See Electronic Medical Record Resting Heart Rate: 86 bpm Resting Blood Pressure: 121/70mmHg Pretest Chest Pain: None Nurse/Tech Notes S1,S2, lungs CTA, pt is slightly SOB from the act of getting from w/c to procedure chair Consent: The procedure was explained to the patient in lay terms. Informed consent was witnessed. Colten eout was entered into [employer]. History and Stress Test performed by RT Jerald (R) (N) Pharm. Details Pharmacologic stress testing was performed using 0.4mg per 5ml of regadenoson given intravenously ove r 7-10 seconds. Stress Symptoms increased drastic SOB, he became very restless, diaphoretic and had decreased b/p. gave pt a ns 250cc bolus for b/p . lowest b/p was 64/38. after fluid bolus b/p came back up to 89/48. pt stated he felt better, no longer diaphoretic but still has some dizziness and SOB. notified Will TEMPLE of pt's resp onse post lexiscan and the fluid bolus given him. notified Adam pt's nurse of these events as well POST EXERCISE Reason for Termination: Infusion complete Max HR: 119 bpm Max Blood Pressure: 95/53mmHg Blood Pressure response to exercise: Abnormal blood pressure response during stress. Heart Rate response to exercise: wnl Chest Pain: No. Arrhythmia: No. ST Change: No. INTERPRETATION Stress EKG Conclusion: The resting EKG showed a sinus rhythm and diffuse nonspecific ST-T wave change s. The stress EKG showed no significant changes from baseline. No EKG evidence of stress-induced ischemia. Imaging Protocol IMAGE PROTOCOL: Rest Tc-99m/stress Tc-99m 1 day Rest: Stress: Viability: Radiopharm.Tc99m [id number] Sestamibi Dose10.8mCi 34mCi Duration 15min. 12min. Img Date 11/22/2016 11/22/2016 Inj-Img [id number]. 60min. Rest Admin Site:IV - Left AntecubitalAdministrator:Edmundo Leo RT (R)(N) Stress Admin Site: IV - Left AntecubitalAdministrator: Edmundo Leo, RT (R)(N) STRESS DATA End Diast. Vol.207.0mlAv. Heart Rate83.0bpm End Syst. Vol.120.0mlCO Index BSA0.0L/min Myocardial Bdpw340.0gEject. Wwxjiolc02.0% Stress Rates Pk. Fill Rate1.57EDV/secLVtime Pk. Fill 129.63msec Pk. Empty Rate1.87ESV/secLVtime Pk. Lbqcn210.19msec 05/28 Pk. Fill0.98EDV/sec Stress Scores Regional WT3.00Summed WT35.00 Regional WM1.00Summed WM24.00 LV Perfusion The stress scans showed no significant defects. The rest scans showed no significant defects. Nuclear imaging shows no reversible ischemia or infarct. Wall Motion The left ventricle shows global hypokinesis with an ejection fraction of 42%. LV Perf. Quant 17 Seg. SSS1.00 17 Seg. SRS2.00 17 Seg. SDS0.00 Stress Defect Extent (% LAD)0.00Rest Defect Extent (% LAD)0.00Rev. Defect Extent (% LAD)0.00 Stress Defect Extent (% LCX) 0.00Rest Defect Extent (% LCX)0.00Rev. Defect Extent (% LCX)0.00 Stress Defect Extent (% RCA)0.00Rest Defect Extent (% RCA)4.40Rev. Defect Extent (% RCA)0.00 Stress Defect Extent (% YASSINE)0.00Rest Defect Extent (% YASSINE)0.90Rev. Defect Extent (% YASSINE)0.00 Conclusion 1. Abnormal baseline EKG but no EKG evidence of stress-induced ischemia. 2. Nuclear imaging shows no reversible ischemia or infarct. 3. Global hypokinesis with a calculated ejection fraction of 42%. 4. TID of 0.99. 5. Moderate to moderately low risk Lexiscan nuclear stress test.
[2016-11-22] MEDS ORDERED: BENZOCAINE 10% ORAL GEL 7GM TUBE. TP PRN (17:45)
[2016-11-22] MEDS ORDERED: ACETAMINOPHEN 325 MG TABLET. PO PRN (17:45)
[2016-11-22] MEDS: CARVEDILOL 6.25 MG TABLET. PO SCH (17:57)
[2016-11-22] MEDS: PANTOPRAZOLE 40 MG TABLET.DR. PO SCH (17:58)
[2016-11-22 19:38] VITALS: BP 116/71
[2016-11-22] MEDS: ATORVASTATIN CALCIUM 20 MG TABLET PO SCH (21:10)
[2016-11-22] MEDS: ENOXAPARIN 40 MG/0.4 ML SYRINGE. SQ SCH (21:11)
[2016-11-22 23:14] VITALS: BP 124/74
[2016-11-23 03:30] VITALS: BP 125/93
[2016-11-23 06:06] LABS: CALCIUM 9.1 mg/dL (8.5-10.1); POTASSIUM 3.8 mmol/L (3.5-5.1)
[2016-11-23 07:00] VITALS: BP 104/74
[2016-11-23] MEDS: PANTOPRAZOLE 40 MG TABLET.DR. PO SCH (07:41)
[2016-11-23] MEDS: AMOXICILLIN 500 MG PO SCH ×3 (08:45→21:16)
[2016-11-23] MEDS: THIAMINE 100 MG TABLET. PO SCH (08:45)
[2016-11-23] MEDS: FOLIC/VIT B COMP W-C (RENAL) TABLET. PO SCH (08:45)
[2016-11-23] MEDS: ASPIRIN ENTERIC COATED 81 MG TABLET.DR. PO SCH (08:45)
[2016-11-23] MEDS: FUROSEMIDE 40 MG TABLET. PO SCH (08:45)
[2016-11-23] MEDS: CARVEDILOL 6.25 MG TABLET. PO SCH ×2 (09:25→17:28)
[2016-11-23 11:00] VITALS: BP 112/81
--- NOTE | 2016-11-23 11:46 | PDOC ---
PROGRESS NOTES Subjective Subjective The patient looks and feels better today. Objective Objective Vital Signs Date Time Temp Pulse Resp B/P (MAP) Pulse Ox O2 Delivery O2 Flow Rate FiO2 11/23/16 09:25 85 113/66 11/23/16 07:00 97.6 18 94 Room Air 97.6 Intake and Output 11/23/16 07:00 Intake Total 450 ml Output Total 1200 ml Balance -750 ml Intake Oral 450 ml Output Urine Total 1200 ml # Voids 1 Physical Exam Abdomen: Normal bowel sounds Heart: Regular rate General: No acute distress Lungs: Other (slightly decreased breath sounds) Assessment Assessment Problems Medical Problems: (1) CHF (congestive heart failure) Status: Acute 1. Acute diastolic/systolic CHF: Significantly improved today. Continue present medications and increase activities. Likely induced by meth use and COPD exacerbation. appears compensated 2. RUQ tenderness with hepatomegaly, possible ascites: Improved today. History of ETOH abuse and or alcohol abuse and hep C. 3. HTN: controlled 4. Cardiomyopathy: Decreased ejection fraction of 25-30%. Nuclear imaging shows no reversible or fixed ischemia. Probably secondary to alcohol use. Discussed with the patient. Continue medical treatment. We'll arrange a LifeVest. Repeat echocardiogram in 3 months to determine if the patient requires a defibrillator. 5. HLP 6. Periodontal disease/substance abuse: methamphetamines Comment Review of Relevant I have reviewed the following items ericka (where applicable) has been applied. Labs Laboratory Tests Test 11/21/16 11:50 11/21/16 20:34 11/22/16 03:05 11/22/16 10:00 White Blood Count 10.5 x10^3/uL (4.0-11.0) 9.0 x10^3/uL (4.0-11.0) Red Blood Count 4.73 x10^6/uL (4.30-5.70) 4.78 x10^6/uL (4.30-5.70) Hemoglobin 14.7 g/dL (13.0-17.5) 14.9 g/dL (13.0-17.5) Hematocrit 43.0 % (39.0-53.0) 44.3 % (39.0-53.0) Mean Corpuscular Volume 91 fL (79-100) 93 fL (79-100) Mean Corpuscular Hemoglobin 31 pg (25-35) 31 pg (25-35) Mean Corpuscular Hemoglobin Concent 34 g/dL (31-37) 34 g/dL (31-37) Red Cell Distribution Width 13.4 % (11.5-14.5) 13.6 % (11.5-14.5) Platelet Count 257 x10^3/uL (140-400) 240 x10^3/uL (140-400) Neutrophils (%) (Auto) 74 % (31-73) 68 % (31-73) Lymphocytes (%) (Auto) 16 % (24-48) 20 % (24-48) Monocytes (%) (Auto) 8 % (0-9) 10 % (0-9) Eosinophils (%) (Auto) 2 % (0-3) 3 % (0-3) Basophils (%) (Auto) 1 % (0-3) 0 % (0-3) Neutrophils # (Auto) 7.8 x10^3uL (1.8-7.7) 6.1 x10^3uL (1.8-7.7) Lymphocytes # (Auto) 1.7 x10^3/uL (1.0-4.8) 1.8 x10^3/uL (1.0-4.8) Monocytes # (Auto) 0.8 x10^3/uL (0.0-1.1) 0.9 x10^3/uL (0.0-1.1) Eosinophils # (Auto) 0.2 x10^3/uL (0.0-0.7) 0.2 x10^3/uL (0.0-0.7) Basophils # (Auto) 0.1 x10^3/uL (0.0-0.2) 0.0 x10^3/uL (0.0-0.2) Prothrombin Time 13.1 SEC (11.7-14.0) Prothromb Time International Ratio 1.1 (0.8-1.1) D-Dimer (Allyn) 0.66 ug/mlFEU (0.00-0.50) Sodium Level 141 mmol/L (136-145) 139 mmol/L (136-145) Potassium Level 3.8 mmol/L (3.5-5.1) 3.6 mmol/L (3.5-5.1) Chloride Level 105 mmol/L (98-107) 101 mmol/L (98-107) Carbon Dioxide Level 29 mmol/L (21-32) 28 mmol/L (21-32) Anion Gap 7 (6-14) 10 (6-14) Blood Urea Nitrogen 21 mg/dL (8-26) 20 mg/dL (8-26) Creatinine 0.8 mg/dL (0.7-1.3) 0.8 mg/dL (0.7-1.3) Estimated GFR (Cockcroft-Gault) 99.6 99.6 Glucose Level 119 mg/dL (70-99) 117 mg/dL (70-99) Calcium Level 9.2 mg/dL (8.5-10.1) 8.9 mg/dL (8.5-10.1) Magnesium Level 2.0 mg/dL (1.8-2.4) Total Bilirubin 0.7 mg/dL (0.2-1.0) Direct Bilirubin 0.1 mg/dL (0.0-0.2) Aspartate Amino Transf (AST/SGOT) 27 U/L (15-37) Alanine Aminotransferase (ALT/SGPT) 36 U/L (16-63) Alkaline Phosphatase 103 U/L (46-116) Creatine Kinase 102 U/L (39-308) Creatine Kinase MB (Mass) 2.7 ng/mL (0.0-3.6) Creatine Kinase MB Relative Index 2.6 % (0-4) Troponin I Quantitative 0.060 ng/mL (0.000-0.055) 0.052 ng/mL (0.000-0.055) 0.046 ng/mL (0.000-0.055) DI-Dol-I-Type Natriuretic Peptide 1024 pg/mL (0-124) Total Protein 7.1 g/dL (6.4-8.2) Albumin 3.8 g/dL (3.4-5.0) Triglycerides Level 247 mg/dL (0-150) Cholesterol Level 218 mg/dL (0-200) LDL Cholesterol, Calculated 129 mg/dL (0-100) VLDL Cholesterol, Calculated 49 mg/dL (0-40) Non-HDL Cholesterol Calculated 178 mg/dL (0-129) HDL Cholesterol 40 mg/dL (40-60) Cholesterol/HDL Ratio 5.5 Lipase 110 U/L (73-393) Thyroid Stimulating Hormone (TSH) 3.416 uIU/mL (0.358-3.74) Urine Collection Type Unknown Urine Color Yellow Urine Clarity Clear Urine pH 6.5 Urine Specific [place] 1.015 Urine Protein Negative mg/dL (NEG-TRACE) Urine Glucose (UA) Negative mg/dL (NEG) Urine Ketones (Stick) Negative mg/dL (NEG) Urine Blood Negative (NEG) Urine Nitrite Negative (NEG) Urine Bilirubin Negative (NEG) Urine Urobilinogen Dipstick 1.0 mg/dL (0.2 mg/dL) Urine Leukocyte Esterase Negative (NEG) Urine RBC 1-2 /HPF (0-2) Urine WBC 1-4 /HPF (0-4) Urine Bacteria Few /HPF (0-FEW) Urine Mucus Mod /LPF Urine Opiates Screen Pos (NEG) Urine Methadone Screen Neg (NEG) Urine Barbiturates Neg (NEG) Urine Phencyclidine Screen Neg (NEG) Urine Amphetamine/Methamphetamine Pos (NEG) Urine Benzodiazepines Screen Neg (NEG) Urine Cocaine Screen Neg (NEG) Urine Cannabinoids Screen Neg (NEG) Urine Ethyl Alcohol Neg (NEG) Test 11/23/16 05:00 Sodium Level 139 mmol/L (136-145) Potassium Level 3.8 mmol/L (3.5-5.1) Chloride Level 102 mmol/L (98-107) Carbon Dioxide Level 29 mmol/L (21-32) Anion Gap 8 (6-14) Blood Urea Nitrogen 25 mg/dL (8-26) Creatinine 1.0 mg/dL (0.7-1.3) Estimated GFR (Cockcroft-Gault) 77.0 Glucose Level 101 mg/dL (70-99) Calcium Level 9.1 mg/dL (8.5-10.1) Laboratory Tests Test 11/23/16 05:00 Sodium Level 139 mmol/L (136-145) Potassium Level 3.8 mmol/L (3.5-5.1) Chloride Level 102 mmol/L (98-107) Carbon Dioxide Level 29 mmol/L (21-32) Anion Gap 8 (6-14) Blood Urea Nitrogen 25 mg/dL (8-26) Creatinine 1.0 mg/dL (0.7-1.3) Estimated GFR (Cockcroft-Gault) 77.0 Glucose Level 101 mg/dL (70-99) Calcium Level 9.1 mg/dL (8.5-10.1) Medications Current Medications Iohexol (Omnipaque 300 Mg/ml) 75 ml 1X ONCE IV Last administered on 11/21/16 13:43; Start 11/21/16 at 13:30; Stop 11/21/16 at 13:31; Status DC Info (Do NOT chart on this entry -- for MONITORING) 1 each PRN DAILY PRN MC SEE COMMENTS; Start 11/21/16 at 13:45; Stop 11/23/16 at 13:44 Furosemide (Lasix) 40 mg 1X ONCE IVP Last administered on 11/21/16 15:30; Start 11/21/16 at 14:30; Stop 11/21/16 at 14:45; Status DC Aspirin (Nat Aspirin) 325 mg 1X ONCE PO Last administered on 11/21/16 15:30 ; Start 11/21/16 at 14:45; Stop 11/21/16 at 14:46; Status DC Ondansetron HCl (Zofran) 4 mg PRN Q8HRS PRN IV NAUSEA/VOMITING; Start 11/21/16 at 14:45; Stop 11/22/16 at 14:44; Status DC Morphine Sulfate 2 mg PRN Q2HR PRN IV PAIN Last administered on 11/22/16 10:58 ; Start 11/21/16 at 14:30; Stop 11/22/16 at 14:29; Status DC Furosemide (Lasix) 40 mg DAILY IVP Last administered on 11/22/16 09:02; Start 11/22/16 at 09:00; Stop 11/22/16 at 09:51; Status DC Hydralazine HCl (Apresoline) 10 mg 1X ONCE IVP Last administered on 11/21/16 18:35; Start 11/21/16 at 15:30; Stop 11/21/16 at 15:31; Status DC Nitroglycerin (Nitro-Bid Oint) 0.5 inch Q6HRS TP Last administered on 06:00; Start 11/21/16 at 18:00; Stop 11/22/16 at 09:59; Status DC Lisinopril (Prinivil) 20 mg DAILY PO Last administered on 11/22/16 09:02; Start 11/22/16 at 09:00 Atorvastatin Calcium (Lipitor) 20 mg QHS PO Last administered on 11/22/16 21: 10; Start 11/21/16 at 21:00 Enoxaparin Sodium (Lovenox Per Pharmacy Prophylaxis Dosing) 1 each PRN DAILY PRN MC SEE COMMENTS; Start 11/21/16 at 20:45 Enoxaparin Sodium (Lovenox 40mg Syringe) 40 mg Q24H SQ Last administered on 21:11; Start 11/21/16 at 21:00 Thiamine Mononitrate (Vitamin B-1) 100 mg DAILY PO Last administered on 08:45; Start 11/22/16 at 09:00 Vitamin B Complex/ Vitamin C (Alee-Daysi) 1 tab DAILY PO Last administered on 08:45; Start 11/22/16 at 09:00 Lorazepam (Ativan) 2 mg PRN Q1HR PRN IV For CIWA 8-14; Start 11/21/16 at 22:15 Lorazepam (Ativan) 4 mg PRN Q1HR PRN IV For CIWA 15 or greater; Start 11/21/16 at 22:15 Thiamine HCl 100 mg/Sodium Chloride 51 ml @ 102 mls/hr 1X ONCE IV Last administered on 11/21/16 23:26; Start 11/21/16 at 22:30; Stop 11/21/16 at 23:01 ; Status DC Amoxicillin (Amoxil) 500 mg [id number] PO ; Start 11/21/16 at 22:15; Status Cancel Zolpidem Tartrate (Ambien) 5 mg PRN QHS PRN PO INSOMNIA Last administered on 23:36; Start 11/21/16 at 22:15 Non-Formulary Medication 1 ea TID PO Last administered on 11/23/16 08:45; Start 11/22/16 at 09:00; Stop 11/23/16 at 21:01 Furosemide (Lasix) 40 mg DAILY PO Last administered on 11/23/16 08:45; Start at 09:00 Aspirin (Ecotrin) 81 mg DAILYWBKFT PO Last administered on 11/23/16 08:45; Start 11/22/16 at 10:00 Carvedilol (Coreg) 6.25 mg BIDWMEALS PO Last administered on 11/23/16 09:25; Start 11/22/16 at 17:00 Regadenoson (Lexiscan) 0.4 mg 1X ONCE IV Last administered on 11/22/16 12:34 ; Start 11/22/16 at 10:45; Stop 11/22/16 at 10:46; Status DC Pantoprazole Sodium (Protonix) 40 mg DAILYAC PO Last administered on 11/23/16 07:41; Start 11/22/16 at 18:00 Acetaminophen (Tylenol) 650 mg PRN Q6HRS PRN PO PAIN Last administered on 18:18; Start 11/22/16 at 17:45 Benzocaine (Ora-Jel) 1 maddy PRN QID PRN TP ORAL PAIN Last administered on 18:36; Start 11/22/16 at 17:45 Vitals/I & O Vital Sign - Last 24 Hours 11/22/16 11/22/16 11/22/16 11/22/16 15:00 17:57 19:38 19:47 Temp 97.7 97.5 97.7 97.5 Pulse 89 89 93 Resp 17 22 B/P (MAP) 101/62 (75) 101/62 116/71 (86) Pulse Ox 95 96 O2 Delivery Room Air Room Air Room Air 11/22/16 11/23/16 11/23/16 11/23/16 23:14 03:30 07:00 09:25 Temp 98.1 98.0 97.6 98.1 98.0 97.6 Pulse 77 89 94 85 Resp 20 19 18 B/P (MAP) 124/74 (91) 125/93 (104) 104/74 (84) 113/66 Pulse Ox 96 95 94 O2 Delivery Room Air Room Air Room Air Intake and Output 11/22/16 11/22/16 11/23/16 15:00 23:00 07:00 Intake Total 450 ml 0 ml Output Total 1200 ml Balance -750 ml 0 ml UGO JUNIOR MD Nov 23, 2016 11:46
[2016-11-23] MEDS: LISINOPRIL 20 MG TABLET PO SCH (12:36)
--- NOTE | 2016-11-23 14:06 | PDOC ---
PROGRESS NOTES Chief Complaint Chief Complaint Acute hypoxic respir failure ASSESSMENT AND PLAN: 1. CHF: acute systolic (EF 25-30%) and diastolic per echo today. clinically improved. continue lasix PO . Cardiology following 2. COPD: possibly contributing to respir issues. nebs qid 3. EtOH abuse: admits to daily use, UDS neg. on CIWA protocol; MultiVites/ thiamine 4. Hepatosplenomegaly: noted on US. 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 no ascites noted. 5. Hyperlipidemia: started on statin 6. Tobaccoism: encouraged cessation 7. Multidrug abuse: distant hx of IVDA; admits to meth in past couple of days. 8. Dental caries: no abscess noted. orajel PRN 9. Prophylaxis: PPI, lovenox History of Present Illness History of Present Illness breathing improved. no CP or palpitations. no abd pain or nausea Vitals Vitals Vital Signs Date Time Temp Pulse Resp B/P (MAP) Pulse Ox O2 Delivery O2 Flow Rate FiO2 11/23/16 12:36 92 112/81 11/23/16 11:00 97.9 18 97 Room Air 97.9 Physical Exam General: No acute distress Heart: Regular rate Lungs: Clear Abdomen: Normal bowel sounds Extremities: No edema Skin: No breakdown, No significant lesion Labs LABS Laboratory Tests Test 11/23/16 05:00 Sodium Level 139 mmol/L (136-145) Potassium Level 3.8 mmol/L (3.5-5.1) Chloride Level 102 mmol/L (98-107) Carbon Dioxide Level 29 mmol/L (21-32) Anion Gap 8 (6-14) Blood Urea Nitrogen 25 mg/dL (8-26) Creatinine 1.0 mg/dL (0.7-1.3) Estimated GFR (Cockcroft-Gault) 77.0 Glucose Level 101 mg/dL (70-99) Calcium Level 9.1 mg/dL (8.5-10.1) PIETER SOLIS MD Nov 23, 2016 14:06
[2016-11-23 15:00] VITALS: BP 139/81
[2016-11-23 19:30] VITALS: BP 113/73
[2016-11-23] MEDS: ATORVASTATIN CALCIUM 20 MG TABLET PO SCH (21:16)
[2016-11-23] MEDS: ENOXAPARIN 40 MG/0.4 ML SYRINGE. SQ SCH (21:17)
[2016-11-23 23:45] VITALS: BP 125/87
[2016-11-24 03:45] VITALS: BP 118/91
[2016-11-24 07:00] VITALS: BP 124/96
[2016-11-24] MEDS: CARVEDILOL 6.25 MG TABLET. PO SCH (08:37)
[2016-11-24] MEDS: FOLIC/VIT B COMP W-C (RENAL) TABLET. PO SCH (08:37)
[2016-11-24] MEDS: PANTOPRAZOLE 40 MG TABLET.DR. PO SCH (08:37)
[2016-11-24] MEDS: FUROSEMIDE 40 MG TABLET. PO SCH (08:37)
[2016-11-24] MEDS: THIAMINE 100 MG TABLET. PO SCH (08:37)
[2016-11-24] MEDS: ASPIRIN ENTERIC COATED 81 MG TABLET.DR. PO SCH (08:37)
[2016-11-24] MEDS: LISINOPRIL 20 MG TABLET PO SCH (08:38)
[2016-11-24] MEDS ORDERED: FOLI0.8T21 PO (09:44)
[2016-11-24] MEDS ORDERED: APIX5TAB PO (09:44)
[2016-11-24] MEDS ORDERED: FURO40TA4 PO (09:44)
[2016-11-24] MEDS ORDERED: ATOR20TA58 PO (09:44)
[2016-11-24] MEDS ORDERED: ASPI-612 PO (09:44)
[2016-11-24] MEDS ORDERED: PANT40TA5 PO (09:44)
[2016-11-24] MEDS ORDERED: CARV6.252 PO (09:44)
[2016-11-24 11:00] VITALS: BP 109/72
[2016-11-24] MEDS ORDERED: POTA10CA2 PO (11:18)
[2016-11-24] MEDS ORDERED: POTA20TA82 PO (11:23)
--- NOTE | 2016-11-24 14:21 | PDOC ---
PROGRESS NOTES Subjective Subjective The patient looks and feels better today. Objective Objective Vital Signs Date Time Temp Pulse Resp B/P (MAP) Pulse Ox O2 Delivery O2 Flow Rate FiO2 11/24/16 11:00 97.6 77 18 109/72 (84) 95 Room Air 97.6 Intake and Output 11/24/16 07:00 Intake Total 750 ml Output Total 2050 ml Balance -1300 ml Intake Oral 750 ml Output Urine Total 2050 ml Physical Exam Abdomen: Normal bowel sounds Heart: Regular rate General: No acute distress Lungs: Clear to auscultation Assessment Assessment Problems Medical Problems: (1) CHF (congestive heart failure) Status: Acute 1. Acute systolic CHF: Compensated. Continuing present medications. Ejection fraction of 25-30% but no ischemia on nuclear scanning. We'll place a LifeVest today. Increase activities. Possibly home later today with office follow-up in 3 weeks. 2. RUQ tenderness with hepatomegaly, possible ascites: Improved today. History of ETOH abuse and or alcohol abuse and hep C. 3. HTN: controlled 4. Cardiomyopathy: Decreased ejection fraction of 25-30%. Nuclear imaging shows no reversible or fixed ischemia. Probably secondary to alcohol use. Discussed with the patient. Continue medical treatment. We'll arrange a LifeVest. Repeat echocardiogram in 3 months to determine if the patient requires a defibrillator. 5. HLP 6. Periodontal disease/substance abuse: methamphetamines Comment Review of Relevant I have reviewed the following items ericka (where applicable) has been applied. Labs Laboratory Tests Test 11/23/16 05:00 Sodium Level 139 mmol/L (136-145) Potassium Level 3.8 mmol/L (3.5-5.1) Chloride Level 102 mmol/L (98-107) Carbon Dioxide Level 29 mmol/L (21-32) Anion Gap 8 (6-14) Blood Urea Nitrogen 25 mg/dL (8-26) Creatinine 1.0 mg/dL (0.7-1.3) Estimated GFR (Cockcroft-Gault) 77.0 Glucose Level 101 mg/dL (70-99) Calcium Level 9.1 mg/dL (8.5-10.1) Medications Current Medications Iohexol (Omnipaque 300 Mg/ml) 75 ml 1X ONCE IV Last administered on 11/21/16t 13:43; Start 11/21/16 at 13:30; Stop 11/21/16 at 13:31; Status DC Info (Do NOT chart on this entry -- for MONITORING) 1 each PRN DAILY PRN MC SEE COMMENTS; Start 11/21/16 at 13:45; Stop 11/23/16 at 13:44; Status DC Furosemide (Lasix) 40 mg 1X ONCE IVP Last administered on 11/21/16 15:30; Start 11/21/16 at 14:30; Stop 11/21/16 at 14:45; Status DC Aspirin (Nat Aspirin) 325 mg 1X ONCE PO Last administered on 11/21/16 15:30 ; Start 11/21/16 at 14:45; Stop 11/21/16 at 14:46; Status DC Ondansetron HCl (Zofran) 4 mg PRN Q8HRS PRN IV NAUSEA/VOMITING; Start 11/21/16 at 14:45; Stop 11/22/16 at 14:44; Status DC Morphine Sulfate 2 mg PRN Q2HR PRN IV PAIN Last administered on 11/22/16 10:58 ; Start 11/21/16 at 14:30; Stop 11/22/16 at 14:29; Status DC Furosemide (Lasix) 40 mg DAILY IVP Last administered on 11/22/16 09:02; Start 11/22/16 at 09:00; Stop 11/22/16 at 09:51; Status DC Hydralazine HCl (Apresoline) 10 mg 1X ONCE IVP Last administered on 11/21/16 18:35; Start 11/21/16 at 15:30; Stop 11/21/16 at 15:31; Status DC Nitroglycerin (Nitro-Bid Oint) 0.5 inch Q6HRS TP Last administered on 06:00; Start 11/21/16 at 18:00; Stop 11/22/16 at 09:59; Status DC Lisinopril (Prinivil) 20 mg DAILY PO Last administered on 11/24/16 08:38; Start 11/22/16 at 09:00; Stop 11/24/16 at 13:39; Status DC Atorvastatin Calcium (Lipitor) 20 mg QHS PO Last administered on 11/23/16 21:16 ; Start 11/21/16 at 21:00; Stop 11/24/16 at 13:39; Status DC Enoxaparin Sodium (Lovenox Per Pharmacy Prophylaxis Dosing) 1 each PRN DAILY PRN MC SEE COMMENTS; Start 11/21/16 at 20:45; Stop 11/24/16 at 13:39; Status DC Enoxaparin Sodium (Lovenox 40mg Syringe) 40 mg Q24H SQ Last administered on 11/23 21:17; Start 11/21/16 at 21:00; Stop 11/24/16 at 13:39; Status DC Thiamine Mononitrate (Vitamin B-1) 100 mg DAILY PO Last administered on 08:37; Start 11/22/16 at 09:00; Stop 11/24/16 at 13:39; Status DC Vitamin B Complex/ Vitamin C (Alee-Daysi) 1 tab DAILY PO Last administered on 08:37; Start 11/22/16 at 09:00; Stop 11/24/16 at 13:39; Status DC Lorazepam (Ativan) 2 mg PRN Q1HR PRN IV For CIWA 8-14; Start 11/21/16 at 22:15 ; Stop 11/24/16 at 13:39; Status DC Lorazepam (Ativan) 4 mg PRN Q1HR PRN IV For CIWA 15 or greater; Start 11/21/16 at 22:15; Stop 11/24/16 at 13:39; Status DC Thiamine HCl 100 mg/Sodium Chloride 51 ml @ 102 mls/hr 1X ONCE IV Last administered on 11/21/16 23:26; Start 11/21/16 at 22:30; Stop 11/21/16 at 23:01 ; Status DC Amoxicillin (Amoxil) 500 mg [id number] PO ; Start 11/21/16 at 22:15; Status Cancel Zolpidem Tartrate (Ambien) 5 mg PRN QHS PRN PO INSOMNIA Last administered on 23:36; Start 11/21/16 at 22:15; Stop 11/24/16 at 13:39; Status DC Non-Formulary Medication 1 ea TID PO Last administered on 11/23/16 21:16; Start 11/22/16 at 09:00; Stop 11/23/16 at 21:01; Status DC Furosemide (Lasix) 40 mg DAILY PO Last administered on 11/24/16 08:37; Start at 09:00; Stop 11/24/16 at 13:39; Status DC Aspirin (Ecotrin) 81 mg DAILYWBKFT PO Last administered on 11/24/16 08:37; Start 11/22/16 at 10:00; Stop 11/24/16 at 13:39; Status DC Carvedilol (Coreg) 6.25 mg BIDWMEALS PO Last administered on 11/24/16 08:37; Start 11/22/16 at 17:00; Stop 11/24/16 at 13:39; Status DC Regadenoson (Lexiscan) 0.4 mg 1X ONCE IV Last administered on 11/22/16 12:34 ; Start 11/22/16 at 10:45; Stop 11/22/16 at 10:46; Status DC Pantoprazole Sodium (Protonix) 40 mg DAILYAC PO Last administered on 11/24/16 08:37; Start 11/22/16 at 18:00; Stop 11/24/16 at 13:39; Status DC Acetaminophen (Tylenol) 650 mg PRN Q6HRS PRN PO PAIN Last administered on 18:18; Start 11/22/16 at 17:45; Stop 11/24/16 at 13:39; Status DC Benzocaine (Ora-Jel) 1 maddy PRN QID PRN TP ORAL PAIN Last administered on 18:36; Start 11/22/16 at 17:45; Stop 11/24/16 at 13:39; Status DC Active Scripts Active Pantoprazole Sodium 40 Mg Tablet.dr 40 Mg PO DAILYAC Eliquis (Apixaban) 5 Mg Tablet 5 Mg PO BID Furosemide 40 Mg Tablet 40 Mg PO DAILY Alee-Daysi Tablet (Folic Acid/Vitamin B Comp W-C) 0.8 Mg Tablet 1 Tab PO DAILY Carvedilol 6.25 Mg Tablet 6.25 Mg PO BIDWMEALS Atorvastatin Calcium 20 Mg Tablet 20 Mg PO QHS Aspirin Ec (Aspirin) 81 Mg Tablet.dr 81 Mg PO DAILYWBKFT Reported Potassium Chloride 20 Meq Tablet.er 20 Meq PO DAILY Vitals/I & O Vital Sign - Last 24 Hours 7/06/1111/23/16 11/23/16 11/23/16 15:00 17:28 19:30 20:00 Temp 97.9 97.7 97.9 97.7 Pulse 94 94 86 Resp 18 20 B/P (MAP) 139/81 (100) 139/81 113/73 (86) Pulse Ox 97 94 O2 Delivery Room Air Room Air Room Air 11/23/16 11/24/16 11/24/16 11/24/16 23:45 03:45 07:00 08:37 Temp 98.3 97.6 98.0 98.3 97.6 98.0 Pulse 83 84 89 89 Resp 21 22 18 B/P (MAP) 125/87 (100) 118/91 (100) 124/96 (105) 124/96 Pulse Ox 98 94 96 O2 Delivery Room Air Room Air Room Air 11/24/16 11/24/16 08:38 11:00 Temp 97.6 97.6 Pulse 89 77 Resp 18 B/P (MAP) 124/96 109/72 (84) Pulse Ox 95 O2 Delivery Room Air Intake and Output 11/23/16 11/23/16 11/24/16 15:00 23:00 07:00 Intake Total 550 ml 200 ml Output Total 1100 ml 950 ml Balance -1100 ml 550 ml -750 ml UGO JUNIOR MD Nov 24, 2016 14:21
--- NOTE | 2016-11-24 16:30 | PDOC ---
PROGRESS NOTES Chief Complaint Chief Complaint Acute hypoxic respir failure ASSESSMENT AND PLAN: 1. CHF: acute systolic (EF 25-30%) and diastolic per echo 11/23. clinically improved. continue lasix PO . Ok to D/C home with LifeVest (being arranged). F/U with Cards 2. COPD: possibly contributing to respir issues. nebs qid 3. EtOH abuse: admits to daily use, UDS neg. on CIWA protocol; MultiVites/ thiamine. no W/D sx noted 4. Hepatosplenomegaly: noted on US. 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 no ascites noted. 5. Hyperlipidemia: started on statin 6. Tobaccoism: encouraged cessation 7. Multidrug abuse: distant hx of IVDA; admits to meth in past couple of days. 8. Dental caries: no abscess noted. orajel PRN 9. Prophylaxis: PPI, lovenox History of Present Illness History of Present Illness breathing improved. no CP or palpitations. no abd pain or nausea Vitals Vitals Vital Signs Date Time Temp Pulse Resp B/P (MAP) Pulse Ox O2 Delivery O2 Flow Rate FiO2 11/24/16 11:00 97.6 77 18 109/72 (84) 95 Room Air 97.6 Physical Exam General: Alert, Oriented X3, No acute distress Heart: Regular rate Lungs: Clear Abdomen: Normal bowel sounds Extremities: No clubbing, No edema Skin: No breakdown, No significant lesion PIETER SOLIS MD Nov 24, 2016 16:30
--- NOTE | 2016-11-24 16:36 | PDOC3 ---
Discharge Summary* Date of Admission: Nov 22, 2016 Date of Discharge: Nov 24, 2016 Admitting Diagnosis Problems Medical Problems: (1) CHF (congestive heart failure) Status: Acute Problems: Final Diagnosis Problems Medical Problems: (1) CHF (congestive heart failure) Status: Acute CONSULTS Cardiology Brief Hospital Course Mr. Peralta is a 56 year old male admitted with dyspnea, orthopnea. 1. CHF: acute systolic (EF 25-30%) and diastolic per echo 11/23. clinically improved. continue lasix PO . Ok to D/C home with [facility] (being arranged). F/U with Cards 2. COPD: possibly contributing to respir issues. nebs qid 3. EtOH abuse: admits to daily use, UDS neg. on CIWA protocol; MultiVites/ thiamine. no W/D sx noted 4. Hepatosplenomegaly: noted on US. 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 no ascites noted. 5. Hyperlipidemia: started on statin 6. Tobaccoism: encouraged cessation 7. Multidrug abuse: distant hx of IVDA; admits to meth in past couple of days. 8. Dental caries: no abscess noted. orajel PRN (?related to 7.) Disposition/Orders: D/C to Home CONDITION AT DISCHARGE: Improved Diet: Cardiac Scheduled Apixaban (Eliquis), 5 MG PO BID Aspirin (Aspirin Ec), 81 MG PO DAILYWBKFT Atorvastatin Calcium (Atorvastatin Calcium), 20 MG PO QHS Carvedilol (Carvedilol), 6.25 MG PO BIDWMEALS Folic Acid/Vitamin B Comp W-C (Alee-Daysi Tablet), 1 TAB PO DAILY Furosemide (Furosemide), 40 MG PO DAILY Pantoprazole Sodium (Pantoprazole Sodium), 40 MG PO DAILYAC Potassium Chloride (Potassium Chloride), 20 MEQ PO DAILY, (Reported) PIETER SOLIS MD Nov 24, 2016 16:36
== END 2016-11-24 13:25 | disposition home or self-care (01) | DRG 291 ==
LOC: ER 11:11 → 2 SOUTH 13:30 → OBSVTOIN 11-22 09:44
PROVIDERS: ADMIT Internal Medicine; ATTEND Internal Medicine
DX: I50.43 Acute on chronic combined systolic (congestive) and diastolic (congestive) heart failure (principal); J96.01 Acute respiratory failure with hypoxia; J44.1 Chronic obstructive pulmonary disease with (acute) exacerbation; I42.9 Cardiomyopathy, unspecified; I11.0 Hypertensive heart disease with heart failure; F17.210 Nicotine dependence, cigarettes, uncomplicated; E78.5 Hyperlipidemia, unspecified; B19.20 Unspecified viral hepatitis C without hepatic coma; K05.6 Periodontal disease, unspecified; K02.9 Dental caries, unspecified; K74.60 Unspecified cirrhosis of liver; F15.10 Other stimulant abuse, uncomplicated; F10.10 Alcohol abuse, uncomplicated; F19.90 Other psychoactive substance use, unspecified, uncomplicated; K05.10 Chronic gingivitis, plaque induced; M19.90 Unspecified osteoarthritis, unspecified site; R56.9 Unspecified convulsions; R16.2 Hepatomegaly with splenomegaly, not elsewhere classified
CPT/HCPCS: 36415; 71010; 71275; 76700; 78452; 80048; 80061; 80076; 81001; 82553; 83690; 83735; 83880; 84443; 84484; 85027; 85379; 85610; 93005; 93017; 93306; 96374; 96375; 96376; 99406; A9500; G0378; G0379; G0481; J0360; J1650; J1940; J2270; J2785; Q9967; 99285-25

== ENCOUNTER → 2017-02-05 | Outpatient (CLI) | payer OTHER ==
[~2017-02-05] MED LIST: APIX5TAB PO; ASPI-612 PO; ATOR20TA58 PO; CARV6.252 PO; FOLI0.8T21 PO; FURO40TA4 PO; PANT40TA5 PO; POTA10CA2 PO; POTA20TA82 PO
--- NOTE | 2017-02-07 14:45 | RESP ---
DATE OF SERVICE: ATTENDING PHYSICIAN: Dr. Yariel Yan. The patient underwent full pulmonary function testing dated 02/05/2017. The FEV1 to FVC ratio was 75%. FEV1 was 81% of predicted at 2.81 liters. FVC was 3.74 liters at 83% of predicted. Vital capacity was 83%. Diffusion capacity was preserved. IMPRESSION: Relatively normal pulmonary function testing. No evidence of severe obstructive lung disease or restrictive disorder. SIDNEY BUTLER MD DR: ELIZABETH/fanta JOB#: [id number] / [id number]
== END | disposition home or self-care (01) ==
LOC: PF 10:43
PROVIDERS: ATTEND Neuromusculoskeletal Medicine, Sports Medicine
DX: J44.9 Chronic obstructive pulmonary disease, unspecified (principal)
CPT/HCPCS: 94060; 94729

== ENCOUNTER 2017-06-25 23:26 | Inpatient (IN) | payer OTHER, MEDICAID ==
[2017-06-25 23:59] LABS: BASO # 0.1 x10^3/uL (0.0-0.2); BASO % 1 % (0-3); EOS # 0.1 x10^3/uL (0.0-0.7); EOS % 0 % (0-3); HEMATOCRIT 44.4 % (39.0-53.0); HEMOGLOBIN 15.1 g/dL (13.0-17.5); LYMPH # 1.6 x10^3/uL (1.0-4.8); LYMPH % 8 % (24-48); MEAN CORPUSCULAR HEMOGLOBIN 30 pg (25-35); MEAN CORPUSCULAR HGB CONC 34 g/dL (31-37); MEAN CORPUSCULAR VOLUME 89 fL (79-100); MONO # 1.8 x10^3/uL (0.0-1.1); MONO % 9 % (0-9); NEUT # 16.3 x10^3uL (1.8-7.7); NEUT % 82 % (31-73); PLATELET COUNT 261 x10^3/uL (140-400); RED BLOOD COUNT 4.98 x10^6/uL (4.30-5.70); RED CELL DISTRIBUTION WIDTH 12.6 % (11.5-14.5); WHITE BLOOD COUNT 19.8 x10^3/uL (4.0-11.0)
[2017-06-26 00:11] LABS: ANION GAP 10 (6-14); BLOOD UREA NITROGEN 15 mg/dL (8-26); BUN/CREATININE RATIO 14 (6-20); CALCIUM 9.3 mg/dL (8.5-10.1); CARBON DIOXIDE 30 mmol/L (21-32); CHLORIDE 97 mmol/L (98-107); CREATININE 1.1 mg/dL (0.7-1.3); GLUCOSE 117 mg/dL (70-99); POTASSIUM 3.4 mmol/L (3.5-5.1); SODIUM 137 mmol/L (136-145)
[2017-06-26 00:17] LABS: ALBUMIN 3.7 g/dL (3.4-5.0); ALBUMIN/GLOBULIN RATIO 0.9 (1.0-1.7); ALK PHOS 102 U/L (46-116); ALT (SGPT) 31 U/L (16-63); AST (SGOT) 27 U/L (15-37); LIPASE 130 U/L (73-393); TOTAL BILIRUBIN 1.4 mg/dL (0.2-1.0)
[2017-06-26 00:19] LABS: LACTIC ACID 2.7 mmol/L (0.4-2.0)
[2017-06-26 00:21] LABS: INFLUENZA A PATIENT NEGATIVE (NEGATIVE); INFLUENZA B PATIENT NEGATIVE (NEGATIVE); OBC FLU VALID
[2017-06-26 00:31] LABS: TROPONINI < 0.017 ng/mL (0.000-0.055)
[2017-06-26 00:37] LABS: CKMB INDEX 0.7 % (0-4); CKMB MASS 1.1 ng/mL (0.0-3.6); CREATINE KINASE 147 U/L (39-308)
[2017-06-26 00:37] LABS: NT-PRO BNP 117 pg/mL (0-124)
[2017-06-26 00:47] LABS: ADD MAN DIFF? YES
[2017-06-26] MEDS: AZITHROMYCIN 250 MG TABLET. PO ×2 (00:54→09:04)
[2017-06-26] MEDS: IV NORMAL SALINE 1000ML BAG 1,000 ML IV ×2 (00:54→01:40)
[2017-06-26] MEDS: IPRATRPIUM/ALBUTEROL 0.5/2.5MG 3 ML NEBU. NEB ×7 (01:00→20:10)
[2017-06-26] MEDS ORDERED: ONDANSETRON PF 4 MG/2 ML VIAL. IV (01:00)
[2017-06-26 02:09] LABS: % BANDS 6 % (0-9); % EOS 1 % (0-5); % LYMPHS 24 % (24-48); % MONOS 7 % (0-10); % SEGS 62 % (35-66); PLT ESTIMATE ADEQUATE (ADEQUATE)
[2017-06-26 06:21] LABS: LACTIC ACID 0.9 mmol/L (0.4-2.0)
[2017-06-26] MEDS: ACETAMINOPHEN 325 MG TABLET. PO ×2 (08:00→20:47)
[2017-06-26] MEDS: PNEUMOC CONJ VACC 23-VALENT 0.5 ML VIAL. VAX IM (09:00)
[2017-06-26] MEDS: FLU VACC QS2017-18 (36MOS+)/PF 0.5 ML SYRINGE. VAX IM (09:00)
[2017-06-26] MEDS: LACTOBACILLUS RHAMNOSUS GG 1 CAPSULE. PO ×2 (09:05→20:47)
[2017-06-26] MEDS: CARVEDILOL 6.25 MG TABLET. PO ×2 (11:15→17:51)
[2017-06-26] MEDS: ASPIRIN ENTERIC COATED 81 MG TABLET.DR. PO (11:16)
[2017-06-26] MEDS: APIXABAN 5 MG TABLET. PO ×2 (11:16→20:47)
[2017-06-26] MEDS: FUROSEMIDE 40 MG TABLET. PO (11:17)
[2017-06-26] MEDS: PANTOPRAZOLE 40 MG TABLET.DR. PO (11:18)
[2017-06-26] MEDS: FOLIC/VIT B COMP W-C (RENAL) TABLET. PO (11:19)
[2017-06-26] MEDS: methylPREDNISolone SOD SUCC PF 40 MG/ML VIAL. IV ×2 (11:20→20:48)
[2017-06-26 13:54] LABS: TROPONINI < 0.017 ng/mL (0.000-0.055)
[2017-06-26] MEDS: ATORVASTATIN CALCIUM 20 MG TABLET PO (20:47)
[2017-06-26] MEDS: cefTRIAXone IV Push 1 GM VIAL. IVP (23:00)
[2017-06-26 23:11] LABS: LEGIONELLA AG UR Negative (Negative)
[2017-06-27 04:34] LABS: ADD MAN DIFF? NO
[2017-06-27 04:40] LABS: BASO % 0 % (0-3); EOS % 0 % (0-3); HEMATOCRIT 43.6 % (39.0-53.0); HEMOGLOBIN 15.1 g/dL (13.0-17.5); LYMPH # 1.1 x10^3/uL (1.0-4.8); LYMPH % 6 % (24-48); MEAN CORPUSCULAR HEMOGLOBIN 31 pg (25-35); MEAN CORPUSCULAR HGB CONC 35 g/dL (31-37); MEAN CORPUSCULAR VOLUME 89 fL (79-100); MONO # 0.6 x10^3/uL (0.0-1.1); MONO % 3 % (0-9); NEUT # 17.3 x10^3uL (1.8-7.7); NEUT % 91 % (31-73); PLATELET COUNT 277 x10^3/uL (140-400); RED BLOOD COUNT 4.92 x10^6/uL (4.30-5.70); RED CELL DISTRIBUTION WIDTH 12.3 % (11.5-14.5)
[2017-06-27 05:07] LABS: ANION GAP 13 (6-14); BLOOD UREA NITROGEN 22 mg/dL (8-26); CALCIUM 9.3 mg/dL (8.5-10.1); CARBON DIOXIDE 23 mmol/L (21-32); CHLORIDE 102 mmol/L (98-107); GLUCOSE 164 mg/dL (70-99); POTASSIUM 3.5 mmol/L (3.5-5.1); SODIUM 138 mmol/L (136-145)
[2017-06-27] MEDS: IPRATRPIUM/ALBUTEROL 0.5/2.5MG 3 ML NEBU. NEB ×4 (07:58→19:57)
[2017-06-27] MEDS: APIXABAN 5 MG TABLET. PO (08:21)
[2017-06-27] MEDS: AZITHROMYCIN 250 MG TABLET. PO (08:21)
[2017-06-27] MEDS: FUROSEMIDE 40 MG TABLET. PO (08:21)
[2017-06-27] MEDS: PANTOPRAZOLE 40 MG TABLET.DR. PO (08:21)
[2017-06-27] MEDS: LACTOBACILLUS RHAMNOSUS GG 1 CAPSULE. PO ×2 (08:21→21:15)
[2017-06-27] MEDS: ASPIRIN ENTERIC COATED 81 MG TABLET.DR. PO (08:21)
[2017-06-27] MEDS: methylPREDNISolone SOD SUCC PF 40 MG/ML VIAL. IV ×2 (08:21→21:14)
[2017-06-27] MEDS: FOLIC/VIT B COMP W-C (RENAL) TABLET. PO (08:21)
[2017-06-27] MEDS: CARVEDILOL 6.25 MG TABLET. PO ×2 (08:22→17:39)
[2017-06-27] MEDS ORDERED: ANTI-COAG MONITOR BY PHARMACY. MC (14:30)
[2017-06-27 15:29] LABS: SPECIMEN SOURCE Urine (.); STREP PNEUMO ANTIGEN Negative (Negative)
[2017-06-27] MEDS: guaiFENesin DM 200MG/20MG 10 ML SYRUP PO ×3 (15:47→21:14)
[2017-06-27] MEDS: ATORVASTATIN CALCIUM 20 MG TABLET PO (21:15)
[2017-06-27 22:51] LABS: BARBITURATES NEG (NEG); BENZODIAZEPINES NEG (NEG); CANNABINOIDS NEG (NEG); COCAINE NEG (NEG); METHADONE NEG (NEG); OPIATES NEG (NEG); PHENCYCLIDINE NEG (NEG)
[2017-06-27 22:52] LABS: AMPHETAMINE/METHAMPHETAMINE POS (NEG); ETHANOL, URINE NEG (NEG)
[2017-06-27] MEDS: cefTRIAXone IV Push 1 GM VIAL. IVP (23:17)
[2017-06-28 06:41] LABS: ADD MAN DIFF? NO
[2017-06-28 07:04] LABS: ANION GAP 10 (6-14); BLOOD UREA NITROGEN 23 mg/dL (8-26); CALCIUM 9.2 mg/dL (8.5-10.1); CARBON DIOXIDE 27 mmol/L (21-32); CHLORIDE 103 mmol/L (98-107); CREATININE 0.9 mg/dL (0.7-1.3); GLUCOSE 98 mg/dL (70-99); MAGNESIUM 2.2 mg/dL (1.8-2.4); POTASSIUM 3.4 mmol/L (3.5-5.1); SODIUM 140 mmol/L (136-145)
[2017-06-28 07:05] LABS: BASO % 0 % (0-3); EOS % 0 % (0-3); HEMATOCRIT 40.1 % (39.0-53.0); HEMOGLOBIN 13.7 g/dL (13.0-17.5); LYMPH % 9 % (24-48); MEAN CORPUSCULAR HEMOGLOBIN 30 pg (25-35); MEAN CORPUSCULAR HGB CONC 34 g/dL (31-37); MEAN CORPUSCULAR VOLUME 89 fL (79-100); MONO # 1.5 x10^3/uL (0.0-1.1); MONO % 7 % (0-9); NEUT # 18.4 x10^3uL (1.8-7.7); NEUT % 84 % (31-73); PLATELET COUNT 287 x10^3/uL (140-400); RED BLOOD COUNT 4.49 x10^6/uL (4.30-5.70); RED CELL DISTRIBUTION WIDTH 12.6 % (11.5-14.5); WHITE BLOOD COUNT 21.9 x10^3/uL (4.0-11.0)
[2017-06-28] MEDS: PANTOPRAZOLE 40 MG TABLET.DR. PO (07:45)
[2017-06-28] MEDS: CARVEDILOL 6.25 MG TABLET. PO ×2 (07:45→17:42)
[2017-06-28] MEDS: ASPIRIN ENTERIC COATED 81 MG TABLET.DR. PO (07:45)
[2017-06-28] MEDS: AZITHROMYCIN 250 MG TABLET. PO (09:23)
[2017-06-28] MEDS: LACTOBACILLUS RHAMNOSUS GG 1 CAPSULE. PO ×2 (09:24→20:42)
[2017-06-28] MEDS: FUROSEMIDE 40 MG TABLET. PO (09:24)
[2017-06-28] MEDS: FOLIC/VIT B COMP W-C (RENAL) TABLET. PO (09:25)
[2017-06-28] MEDS: guaiFENesin DM 200MG/20MG 10 ML SYRUP PO ×4 (09:25→20:42)
[2017-06-28] MEDS: methylPREDNISolone SOD SUCC PF 40 MG/ML VIAL. IV (09:26)
[2017-06-28] MEDS: IPRATRPIUM/ALBUTEROL 0.5/2.5MG 3 ML NEBU. NEB ×4 (09:34→19:53)
[2017-06-28] MEDS: BUDESONIDE 0.5 MG/2 ML NEBU. NEB ×2 (13:00→19:53)
[2017-06-28] MEDS: ATORVASTATIN CALCIUM 20 MG TABLET PO (20:42)
[2017-06-28] MEDS: cefTRIAXone IV Push 1 GM VIAL. IVP (23:01)
[2017-06-29] MEDS: BUDESONIDE 0.5 MG/2 ML NEBU. NEB ×2 (08:09→19:14)
[2017-06-29] MEDS: IPRATRPIUM/ALBUTEROL 0.5/2.5MG 3 ML NEBU. NEB ×4 (08:09→19:14)
[2017-06-29] MEDS: FOLIC/VIT B COMP W-C (RENAL) TABLET. PO (08:22)
[2017-06-29] MEDS: guaiFENesin DM 200MG/20MG 10 ML SYRUP PO ×4 (08:22→20:34)
[2017-06-29] MEDS: PANTOPRAZOLE 40 MG TABLET.DR. PO (08:22)
[2017-06-29] MEDS: ASPIRIN ENTERIC COATED 81 MG TABLET.DR. PO (08:22)
[2017-06-29] MEDS: LACTOBACILLUS RHAMNOSUS GG 1 CAPSULE. PO ×2 (08:22→20:34)
[2017-06-29] MEDS: FUROSEMIDE 40 MG TABLET. PO (08:22)
[2017-06-29] MEDS: AZITHROMYCIN 250 MG TABLET. PO (08:22)
[2017-06-29] MEDS: CARVEDILOL 6.25 MG TABLET. PO ×2 (08:24→16:28)
[2017-06-29] MEDS: valACYclovir 500 MG TABLET. PO ×2 (16:26→20:34)
[2017-06-29] MEDS: ATORVASTATIN CALCIUM 20 MG TABLET PO (20:34)
[2017-06-29] MEDS: CEFPODOXIME PROXETIL 100 MG TABLET. PO (20:35)
[2017-06-29] MEDS: ACETAMINOPHEN 325 MG TABLET. PO (21:23)
[2017-06-30] MEDS: BUDESONIDE 0.5 MG/2 ML NEBU. NEB (07:41)
[2017-06-30] MEDS: IPRATRPIUM/ALBUTEROL 0.5/2.5MG 3 ML NEBU. NEB ×2 (07:42→11:34)
[2017-06-30] MEDS: ACETAMINOPHEN 325 MG TABLET. PO (08:35)
[2017-06-30] MEDS: CARVEDILOL 6.25 MG TABLET. PO (08:36)
[2017-06-30] MEDS: AZITHROMYCIN 250 MG TABLET. PO (08:36)
[2017-06-30] MEDS: ASPIRIN ENTERIC COATED 81 MG TABLET.DR. PO (08:36)
[2017-06-30] MEDS: FUROSEMIDE 40 MG TABLET. PO (08:36)
[2017-06-30] MEDS: LACTOBACILLUS RHAMNOSUS GG 1 CAPSULE. PO (08:36)
[2017-06-30] MEDS: FOLIC/VIT B COMP W-C (RENAL) TABLET. PO (08:36)
[2017-06-30] MEDS: CEFPODOXIME PROXETIL 100 MG TABLET. PO (08:36)
[2017-06-30] MEDS: guaiFENesin DM 200MG/20MG 10 ML SYRUP PO ×2 (08:36→12:19)
[2017-06-30] MEDS: PANTOPRAZOLE 40 MG TABLET.DR. PO (08:37)
[2017-06-30] MEDS: valACYclovir 500 MG TABLET. PO (10:22)
== END 2017-06-30 15:00 | disposition home or self-care (01) | DRG 871 ==
LOC: ED HOLD 06-26 02:06 → ER 23:26 → 5 NORTH 06-26 02:45
DX: A41.9 Sepsis, unspecified organism (principal); J18.9 Pneumonia, unspecified organism; I11.0 Hypertensive heart disease with heart failure; I42.9 Cardiomyopathy, unspecified; I50.22 Chronic systolic (congestive) heart failure; J44.0 Chronic obstructive pulmonary disease with (acute) lower respiratory infection; E78.00 Pure hypercholesterolemia, unspecified; E78.5 Hyperlipidemia, unspecified; F17.210 Nicotine dependence, cigarettes, uncomplicated; Z79.01 Long term (current) use of anticoagulants; Z96.659 Presence of unspecified artificial knee joint; F10.20 Alcohol dependence, uncomplicated; F15.90 Other stimulant use, unspecified, uncomplicated; F19.10 Other psychoactive substance abuse, uncomplicated; M19.90 Unspecified osteoarthritis, unspecified site; Z88.8 Allergy status to other drugs, medicaments and biological substances
CPT/HCPCS: 36415; 71045; 80048; 80053; 80307; 82553; 83605; 83690; 83735; 83880; 84484; 85007; 85025; 87040; 87070; 87205; 87449; 87804; 87804-59; 93005; 93306; 94640; 94660; 94668; 94760; 96361; 96365; 99291-25; J0690; J0696; J2920; J7030; J7620; J7626; Q0144

== ENCOUNTER 2018-02-24 22:22 | Emergency (ER) | payer OTHER ==
[~2018-02-24] VITALS: Ht 177.8 cm; Wt 89.4 kg
[2018-02-24 22:50] LABS: BASO % 1 % (0-3); EOS # 0.2 x10^3/uL (0.0-0.7); EOS % 2 % (0-3); HEMATOCRIT 43.9 % (39.0-53.0); HEMOGLOBIN 15.5 g/dL (13.0-17.5); LYMPH # 1.8 x10^3/uL (1.0-4.8); LYMPH % 21 % (24-48); MEAN CORPUSCULAR HEMOGLOBIN 31 pg (25-35); MEAN CORPUSCULAR HGB CONC 35 g/dL (31-37); MEAN CORPUSCULAR VOLUME 88 fL (79-100); MONO % 12 % (0-9); NEUT # 5.3 x10^3uL (1.8-7.7); NEUT % 64 % (31-73); PLATELET COUNT 273 x10^3/uL (140-400); RED BLOOD COUNT 4.97 x10^6/uL (4.30-5.70); RED CELL DISTRIBUTION WIDTH 12.8 % (11.5-14.5); WHITE BLOOD COUNT 8.3 x10^3/uL (4.0-11.0)
[2018-02-24 22:59] LABS: CALCIUM 9.2 mg/dL (8.5-10.1); CREATININE 1.1 mg/dL (0.7-1.3); GFR 68.8; POTASSIUM 3.6 mmol/L (3.5-5.1)
[2018-02-24 23:04] LABS: ALBUMIN 3.8 g/dL (3.4-5.0); ALBUMIN/GLOBULIN RATIO 0.9 (1.0-1.7); TOTAL BILIRUBIN 0.6 mg/dL (0.2-1.0); TOTAL PROTEIN 8.2 g/dL (6.4-8.2)
[2018-02-24] MEDS: KETOROLAC 15 MG/ML VIAL. IV ONE (23:37)
--- NOTE | 2018-02-25 | PHYS DOC ---
Past Medical History Past Medical History: High Cholesterol, Hypertension, Other Additional Past Medical Histor: HEP C; prior IVDA; cardiomyopathy Past Surgical History: Knee Replacement, Tonsillectomy Alcohol Use: None Drug Use: None Social History Narrative: PRIOR IV DRUG ABUSE PER HX Adult General Chief Complaint Chief Complaint: CHEST PAIN HPI HPI Patient is a 57 year old male with history of emphysema, cardiomyopathy who presents with left-sided upper chest wall pain described as sharp and pleuritic with onset 3 hours prior to ED arrival.. Patient states pain is worse with deep breathing and arm movement. No nausea vomiting fever chills or sweats. Denies productive cough. No leg pain swelling. Denies history of any T or PE. Patient has had similar pains multiple times. Previous cardiac workup was nondiagnostic for CAD. No medications or therapy sticking prior to ED arrival. [] Review of Systems Review of Systems rEView symptoms as per history of present illness. All other review symptoms are negative. All other systems were reviewed and found to be within normal limits, except as documented in this note. Current Medications Current Medications Current Medications Medications (Trade) Dose Ordered Sig/Tutu Start Time Stop Time Status Last Admin Dose Admin Ketorolac Tromethamine (Toradol 15mg Vial) 15 mg 1X ONCE 02/24/18 23:30 02/24/18 23:31 DC 02/24/18 23:37 15 MG Allergies Allergies Allergies Coded Allergies Type Severity Reaction Last Updated Verified meperidine Allergy Mild N/V 06/26/17 Yes Physical Exam Physical Exam Constitutional: Well developed, well nourished, no acute distress, non-toxic appearance. [] HENT: Normocephalic, atraumatic, bilateral external ears normal, oropharynx moist, no oral exudates, nose normal. [] Eyes: PERRLA, EOMI, conjunctiva normal, no discharge. [] Neck: Normal range of motion, no tenderness, supple, no stridor. [] Cardiovascular:Heart rate regular rhythm, no murmur, left superior lateral chest wall pain, tenderness, negative Homans signs. [] Lungs & Thorax: Patient's nonlabored, mildly diminished bilaterally.[] Abdomen: Bowel sounds normal, soft, no tenderness. [] Skin: Warm, dry, no erythema, no rash. [] Back: No tenderness, no CVA tenderness. [] Extremities: No tenderness, no edema. [] Neurologic: Alert and oriented X 3, normal motor function, normal sensory function, no focal deficits noted. [] Psychologic: Affect normal, judgement normal, mood normal. [] Current Patient Data Vital Signs Vital Signs Date Time Temp Pulse Resp B/P (MAP) Pulse Ox O2 Delivery O2 Flow Rate FiO2 02/24/18 22:24 98.0 94 20 136/84 (101) 98 Room Air 98.0 Lab Values Laboratory Tests Test 02/24/18 22:40 02/25/18 00:40 White Blood Count 8.3 x10^3/uL (4.0-11.0) Red Blood Count 4.97 x10^6/uL (4.30-5.70) Hemoglobin 15.5 g/dL (13.0-17.5) Hematocrit 43.9 % (39.0-53.0) Mean Corpuscular Volume 88 fL (79-100) Mean Corpuscular Hemoglobin 31 pg (25-35) Mean Corpuscular Hemoglobin Concent 35 g/dL (31-37) Red Cell Distribution Width 12.8 % (11.5-14.5) Platelet Count 273 x10^3/uL (140-400) Neutrophils (%) (Auto) 64 % (31-73) Lymphocytes (%) (Auto) 21 % (24-48) L Monocytes (%) (Auto) 12 % (0-9) H Eosinophils (%) (Auto) 2 % (0-3) Basophils (%) (Auto) 1 % (0-3) Neutrophils # (Auto) 5.3 x10^3uL (1.8-7.7) Lymphocytes # (Auto) 1.8 x10^3/uL (1.0-4.8) Monocytes # (Auto) 1.0 x10^3/uL (0.0-1.1) Eosinophils # (Auto) 0.2 x10^3/uL (0.0-0.7) Basophils # (Auto) 0.0 x10^3/uL (0.0-0.2) D-Dimer (Allyn) 0.33 ug/mlFEU (0.00-0.50) Sodium Level 139 mmol/L (136-145) Potassium Level 3.6 mmol/L (3.5-5.1) Chloride Level 99 mmol/L (98-107) Carbon Dioxide Level 31 mmol/L (21-32) Anion Gap 9 (6-14) Blood Urea Nitrogen 15 mg/dL (8-26) Creatinine 1.1 mg/dL (0.7-1.3) Estimated GFR (Cockcroft-Gault) 68.8 BUN/Creatinine Ratio 14 (6-20) Glucose Level 118 mg/dL (70-99) H Calcium Level 9.2 mg/dL (8.5-10.1) Total Bilirubin 0.6 mg/dL (0.2-1.0) Aspartate Amino Transferase (AST) 24 U/L (15-37) Alanine Aminotransferase (ALT) 28 U/L (16-63) Alkaline Phosphatase 122 U/L (46-116) H Troponin I Quantitative < 0.017 ng/mL (0.000-0.055) < 0.017 ng/mL (0.000-0.055) EC-Hdq-L-Type Natriuretic Peptide 25 pg/mL (0-124) Total Protein 8.2 g/dL (6.4-8.2) Albumin 3.8 g/dL (3.4-5.0) Albumin/Globulin Ratio 0.9 (1.0-1.7) L Laboratory Tests 02/24/18 22:40 Laboratory Tests 02/24/18 22:40 EKG EKG [EKG: Sinus rhythm, rate 92, no acute ST-T wave changes, QTC 465.] Radiology/Procedures Radiology/Procedures Chest x-ray: No pulmonary infiltrate.[] Course & Med Decision Making Course & Med Decision Making Pertinent Labs and Imaging studies reviewed. (See chart for details) [Atypical reproducible chest wall pain.Symptoms improved with treatment. Will recheck troponin have follow-up with PCP/cardiology if negative..] Dragon Disclaimer Dragon Disclaimer This electronic medical record was generated, in whole or in part, using a voice recognition dictation system. 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 Return to the ED if new or worsening symptoms. FABI DOYLE DO Feb 25, 2018 00:00
--- NOTE | 2018-02-25 00:16 | EKG ---
[facility] [address] [place] [address] Test Date: 2018-02-24 Test Time: 22:24:52 Pat Name: YE ESCALERA Department: Room: Gender: Male [employer]: : 1960 Requested By: FABI DOYLE Order Number: [id number] Reading MD: Seven Hinton MD Measurements Intervals [place] Rate: 92 P: 55 [place]: 148 QRS: 69 QRSD: 98 T: 63 QT: 372 QTc: 465 Interpretive Statements SINUS RHYTHM Electronically Signed On 03-02-2018 10:36:51 CDT by Seven Hinton MD
--- NOTE | 2018-02-25 00:28 | RAD ---
AP portable chest radiograph 02/24/2018 Clinical History: Left-sided chest pain. An AP erect portable digital radiograph of the chest was obtained. Comparison study is dated 06/25/2017. The cardiac silhouette is normal in size. The thoracic aorta is mildly tortuous. No acute pulmonary infiltrate is seen. No pleural effusion or pneumothorax is noted. The osseous structures are unchanged. IMPRESSION: No acute abnormality is seen. Electronically signed by: Chapito Lowery MD (02/25/2018 12:24 AM) [facility]
[2018-02-25 01:30] VITALS: BP 113/73
== END 2018-02-25 01:45 | disposition home or self-care (01) ==
LOC: ER 22:22
DX: R07.89 Other chest pain (principal); E78.00 Pure hypercholesterolemia, unspecified; I10 Essential (primary) hypertension; Z90.89 Acquired absence of other organs; Z96.659 Presence of unspecified artificial knee joint; Z88.8 Allergy status to other drugs, medicaments and biological substances
CPT/HCPCS: 36415; 71045; 80053; 83880; 84484; 85025; 85379; 93005; 96374; 99285; J1885

== ENCOUNTER → 2018-11-19 | Outpatient (CLI) | payer OTHER ==
[~2018-11-19] MED LIST changes: +CARV6.2511 PO; -CARV6.252 PO; -PANT40TA5 PO; +PANT40TA77 PO
--- NOTE | 2018-11-19 09:54 | CARD ---
MR#: [id number] Date of Study: 11/19/2018 Ordering Physician: UGO JUNIOR, Referring Physician: UGO JUNIOR, Tech: Shaylee Baez [facility] APPROVED REPORT EXAM: Two-dimensional and M-mode echocardiogram with Doppler and color Doppler. Other Information Quality : GoodHR: 100bpm Rhythm : Tachycardia INDICATION Cardiomyopathy 2D DIMENSIONS RVDd3.0 (2.9-3.5cm)Left Atrium(2D)3.5 (1.6-4.0cm) IVSd1.2 (0.7-1.1cm)Aortic Root(2D)3.4 (2.0-3.7cm) LVDd5.1 (3.9-5.9cm)LVOT Diameter2.2 (1.8-2.4cm) PWd0.9 (0.7-1.1cm)LVDs4.0 (2.5-4.0cm) FS (%) 20.9 %SV51.9 ml LVEF(%)42.3 (>50%) M-Mode DIMENSIONS Left Atrium(MM)3.58 (2.5-4.0cm)IVSd0.99 (0.7-1.1cm) Aortic Root3.35 (2.2-3.7cm)LVDd5.40 (4.0-5.6cm) PWd1.10 (0.7-1.1cm)FS (%) 23 % LVDs4.16 (2.0-3.8cm)ESV(Teich)76.9 ml LVEF(%)46 (>50%) Aortic Valve AoV Peak Can.136.6cm/sAoV VTI18.3cm AO Peak GR.7.5mmHgLVOT Peak Can.117.5cm/s AO Mean GR.3mmHgAVA (VMAX)3.20cm2 RICHARD (VTI)3.20cm2 Mitral Valve MV E Aecclree73.7cm/sMV E Peak Gr.4mmHg MV DECEL VHGY64gmUM A Bljtawcr01.7cm/s MV E Mean Gr.2mmHgE/A Ratio0.7 Pulmonary Valve PV Peak Idleumnw33.7cm/s Tricuspid Valve TR P. Nqaatzye325co/sRAP CVNXSGPR4oeVl TR Peak Gr.00ctZaHGLG91cbRb Pulmonary Vein S1 Xsoecxni94.1cm/sD2 Sisekxyq33.1cm/s PVa byarhhro92orsu LEFT VENTRICLE The left ventricle is normal size. Proximal septal thickening is noted. The systolic function is mild ly impaired. The Ejection Fraction is 40-45%. There is global hypokinesis of the left ventricle. Sept al motion consistent with conduction abnormality. Transmitral Doppler flow pattern is Grade I-abnorma l relaxation pattern. RIGHT VENTRICLE The right ventricle is normal size. There is normal right ventricular wall thickness. The right ventr icular systolic function is normal. ATRIA The left atrium size is normal. The right atrium size is normal. The interatrial septum is intact wit h no evidence for an atrial septal defect or patent foramen ovale as noted on 2-D or Doppler imaging. AORTIC VALVE The aortic valve is mildly calcified. The aortic valve is trileaflet. Doppler and Color Flow revealed trace aortic regurgitation. There is no significant aortic valvular stenosis. MITRAL VALVE The mitral valve is normal in structure and function. There is no evidence of mitral valve prolapse. There is no mitral valve stenosis. Doppler and Color-flow revealed trace mitral regurgitation. TRICUSPID VALVE The tricuspid valve is normal in structure and function. Doppler and Color Flow revealed mild. There is moderate pulmonary hypertension. The PA pressure was estimated at 44 mmHg. tricuspid regurgitation . There is no tricuspid valve prolapse or vegetation. There is no tricuspid valve stenosis. PULMONIC VALVE Doppler and Color Flow revealed no pulmonic valvular regurgitation. There is no pulmonic valvular keo nosis. GREAT VESSELS The aortic root is normal in size. The ascending aorta is normal in size. The IVC is normal in size a nd collapses >50% with inspiration. PERICARDIAL EFFUSION There is no evidence of significant pericardial effusion. Critical Notification Critical Value: No <Conclusion> The systolic function is mildly impaired. The Ejection Fraction is 40-45%. There is global hypokinesis of the left ventricle. Septal motion consistent with conduction abnormali ty. Doppler and Color Flow revealed mild. There is moderate pulmonary hypertension. The PA pressure was e stimated at 44 mmHg. tricuspid regurgitation. Signed by : Seven Hinton, Electronically Approved : 11/19/2018 09:54:21
== END | disposition home or self-care (01) ==
LOC: ECHO 08:53
PROVIDERS: ATTEND Internal Medicine Cardiovascular Disease
DX: I08.1 Rheumatic disorders of both mitral and tricuspid valves (principal); I27.20 Pulmonary hypertension, unspecified; I11.0 Hypertensive heart disease with heart failure; I50.22 Chronic systolic (congestive) heart failure; I42.9 Cardiomyopathy, unspecified
CPT/HCPCS: 93306